=== PATIENT | female | born 1950 | race Caucasian/White ===

== ENCOUNTER 2023-05-08 13:50 | Outpatient (AMB) | payer MEDICARE, OTHER, SELFPAY ==
--- NOTE | 2023-05-08 14:02 | A.OFFVISCO_ITS ---
Intake Intake Visit Reasons: Depression Coding
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
--- NOTE | 2023-05-08 14:02 | MHC.PSYOV ---
Intake Intake Visit Reasons: Depression Coding
== END 2023-05-08 15:58 | disposition home or self-care (01) ==
LOC: HO.HOP 13:50
PROVIDERS: PCP Family Medicine; Visit Provider Clinical Nurse Specialist Psychiatric/Mental Health
DX: F33.9 Major depressive disorder, recurrent, unspecified (principal); F41.1 Generalized anxiety disorder
CPT/HCPCS: 99215

== ENCOUNTER → 2023-05-08 13:50 | Outpatient (BNVA) | payer MEDICARE, OTHER, SELFPAY | PROVIDERS: PCP Family Medicine; Visit Provider Clinical Nurse Specialist Psychiatric/Mental Health | DX: F33.9 Major depressive disorder, recurrent, unspecified (principal); F41.1 Generalized anxiety disorder | CPT/HCPCS: 99212 ==

== ENCOUNTER 2023-06-07 15:26 | Outpatient (AMB) | payer MEDICARE, OTHER, SELFPAY ==
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
== END 2023-06-07 15:59 | disposition home or self-care (01) ==
LOC: HO.HOP 15:26
PROVIDERS: PCP Family Medicine; Visit Provider Clinical Nurse Specialist Psychiatric/Mental Health
DX: F33.1 Major depressive disorder, recurrent, moderate (principal); F41.1 Generalized anxiety disorder
CPT/HCPCS: 99214

== ENCOUNTER → 2023-06-07 15:26 | Outpatient (BNVA) | payer MEDICARE, OTHER, SELFPAY | PROVIDERS: PCP Family Medicine; Visit Provider Clinical Nurse Specialist Psychiatric/Mental Health | DX: F33.1 Major depressive disorder, recurrent, moderate (principal); F41.1 Generalized anxiety disorder | CPT/HCPCS: 99212 ==

== ENCOUNTER 2023-07-31 13:14 | Outpatient (AMB) | payer MEDICARE, OTHER, SELFPAY ==
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
== END 2023-07-31 17:33 | disposition home or self-care (01) ==
LOC: HO.HOP 13:14
PROVIDERS: PCP Family Medicine; Visit Provider Clinical Nurse Specialist Psychiatric/Mental Health
DX: F33.1 Major depressive disorder, recurrent, moderate (principal); F41.1 Generalized anxiety disorder
CPT/HCPCS: 99214

== ENCOUNTER → 2023-07-31 13:14 | Outpatient (BNVA) | payer MEDICARE, OTHER, SELFPAY | PROVIDERS: PCP Family Medicine; Visit Provider Clinical Nurse Specialist Psychiatric/Mental Health | DX: F33.1 Major depressive disorder, recurrent, moderate (principal); F41.1 Generalized anxiety disorder | CPT/HCPCS: 99212 ==

== ENCOUNTER 2023-08-30 14:47 | Outpatient (AMB) | payer MEDICARE, OTHER, SELFPAY ==
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
== END 2023-08-30 15:23 | disposition home or self-care (01) ==
LOC: HO.HOP 14:47
PROVIDERS: PCP Family Medicine; Visit Provider Clinical Nurse Specialist Psychiatric/Mental Health
DX: F33.1 Major depressive disorder, recurrent, moderate (principal); F41.1 Generalized anxiety disorder
CPT/HCPCS: 99214

== ENCOUNTER → 2023-08-30 14:47 | Outpatient (BNVA) | payer MEDICARE, OTHER, SELFPAY | PROVIDERS: PCP Family Medicine; Visit Provider Clinical Nurse Specialist Psychiatric/Mental Health | DX: F33.1 Major depressive disorder, recurrent, moderate (principal); F41.1 Generalized anxiety disorder | CPT/HCPCS: 99212 ==

== ENCOUNTER 2023-09-25 11:36 | Outpatient (AMB) | payer MEDICARE, OTHER, SELFPAY ==
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
== END 2023-09-25 12:06 | disposition home or self-care (01) ==
LOC: HO.HOP 11:37
PROVIDERS: PCP Family Medicine; Visit Provider Clinical Nurse Specialist Psychiatric/Mental Health
DX: F33.1 Major depressive disorder, recurrent, moderate (principal); F41.1 Generalized anxiety disorder
CPT/HCPCS: 99214

== ENCOUNTER → 2023-09-25 11:36 | Outpatient (BNVA) | payer MEDICARE, OTHER, SELFPAY | PROVIDERS: PCP Family Medicine; Visit Provider Clinical Nurse Specialist Psychiatric/Mental Health | DX: F33.1 Major depressive disorder, recurrent, moderate (principal); F41.1 Generalized anxiety disorder | CPT/HCPCS: 99212 ==

== ENCOUNTER 2023-11-01 10:54 | Outpatient (AMB) | payer MEDICARE, OTHER, SELFPAY ==
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
== END 2023-11-01 11:31 | disposition home or self-care (01) ==
LOC: HO.HOP 10:54
PROVIDERS: PCP Family Medicine; Visit Provider Clinical Nurse Specialist Psychiatric/Mental Health
DX: F33.1 Major depressive disorder, recurrent, moderate (principal); F41.1 Generalized anxiety disorder
CPT/HCPCS: 99214

== ENCOUNTER → 2023-11-01 10:54 | Outpatient (BNVA) | payer MEDICARE, OTHER, SELFPAY | PROVIDERS: PCP Family Medicine; Visit Provider Clinical Nurse Specialist Psychiatric/Mental Health | DX: F33.1 Major depressive disorder, recurrent, moderate (principal); F41.1 Generalized anxiety disorder | CPT/HCPCS: 99212 ==

== ENCOUNTER 2024-01-05 11:08 | Outpatient (AMB) | payer MEDICARE, OTHER, SELFPAY ==
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
== END 2024-01-05 11:54 | disposition home or self-care (01) ==
LOC: HO.HOP 11:08
PROVIDERS: PCP Family Medicine; Visit Provider Clinical Nurse Specialist Psychiatric/Mental Health
DX: F33.1 Major depressive disorder, recurrent, moderate (principal); F41.1 Generalized anxiety disorder
CPT/HCPCS: 99214

== ENCOUNTER → 2024-01-05 11:08 | Outpatient (BNVA) | payer MEDICARE, OTHER, SELFPAY | PROVIDERS: PCP Family Medicine; Visit Provider Clinical Nurse Specialist Psychiatric/Mental Health | DX: F33.1 Major depressive disorder, recurrent, moderate (principal); F41.1 Generalized anxiety disorder; I10 Essential (primary) hypertension | CPT/HCPCS: 99212 ==

== ENCOUNTER 2024-02-02 11:20 | Outpatient (AMB) | payer MEDICARE, OTHER, SELFPAY ==
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
== END 2024-02-02 12:06 | disposition home or self-care (01) ==
LOC: HO.HOP 11:20
PROVIDERS: PCP Family Medicine; Visit Provider Clinical Nurse Specialist Psychiatric/Mental Health
DX: F33.1 Major depressive disorder, recurrent, moderate (principal); F41.1 Generalized anxiety disorder
CPT/HCPCS: 99214

== ENCOUNTER → 2024-02-02 11:20 | Outpatient (BNVA) | payer MEDICARE, OTHER, SELFPAY | PROVIDERS: PCP Family Medicine; Visit Provider Clinical Nurse Specialist Psychiatric/Mental Health | DX: F33.1 Major depressive disorder, recurrent, moderate (principal); F41.1 Generalized anxiety disorder | CPT/HCPCS: 99212 ==

== ENCOUNTER 2024-03-29 11:06 | Outpatient (AMB) | payer MEDICARE, OTHER, SELFPAY ==
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
== END 2024-03-29 11:52 | disposition home or self-care (01) ==
LOC: HO.HOP 11:06
PROVIDERS: PCP Family Medicine; Visit Provider Clinical Nurse Specialist Psychiatric/Mental Health
DX: F33.1 Major depressive disorder, recurrent, moderate (principal); F41.1 Generalized anxiety disorder; F51.5 Nightmare disorder
CPT/HCPCS: 99214

== ENCOUNTER → 2024-03-29 11:06 | Outpatient (BNVA) | payer MEDICARE, OTHER, SELFPAY | PROVIDERS: PCP Family Medicine; Visit Provider Clinical Nurse Specialist Psychiatric/Mental Health | DX: F33.1 Major depressive disorder, recurrent, moderate (principal); F41.1 Generalized anxiety disorder; F51.5 Nightmare disorder | CPT/HCPCS: 99212 ==

== ENCOUNTER 2024-05-17 12:59 | Outpatient (AMB) | payer MEDICARE, OTHER, SELFPAY ==
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
== END 2024-05-17 13:46 | disposition home or self-care (01) ==
LOC: HO.HOP 12:59
PROVIDERS: PCP Family Medicine; Visit Provider Clinical Nurse Specialist Psychiatric/Mental Health
DX: F33.1 Major depressive disorder, recurrent, moderate (principal); F41.1 Generalized anxiety disorder
CPT/HCPCS: 99214

== ENCOUNTER → 2024-05-17 12:59 | Outpatient (BNVA) | payer MEDICARE, OTHER, SELFPAY | PROVIDERS: PCP Family Medicine; Visit Provider Clinical Nurse Specialist Psychiatric/Mental Health | DX: F33.1 Major depressive disorder, recurrent, moderate (principal); F41.1 Generalized anxiety disorder | CPT/HCPCS: 99212 ==

== ENCOUNTER 2024-08-26 10:02 | Outpatient (AMB) | payer MEDICARE, OTHER, SELFPAY ==
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
== END 2024-08-26 15:15 | disposition home or self-care (01) ==
LOC: HO.HOP 10:02
PROVIDERS: PCP Family Medicine; Visit Provider Clinical Nurse Specialist Psychiatric/Mental Health
DX: F51.5 Nightmare disorder (principal); F33.1 Major depressive disorder, recurrent, moderate; F41.1 Generalized anxiety disorder
CPT/HCPCS: 99214

== ENCOUNTER → 2024-08-26 10:02 | Outpatient (BNVA) | payer MEDICARE, OTHER, SELFPAY | PROVIDERS: PCP Family Medicine; Visit Provider Clinical Nurse Specialist Psychiatric/Mental Health | DX: F51.5 Nightmare disorder (principal); F33.1 Major depressive disorder, recurrent, moderate; F41.1 Generalized anxiety disorder | CPT/HCPCS: 99212 ==

== ENCOUNTER 2024-10-24 10:37 | Outpatient (AMB) | payer MEDICARE, OTHER, SELFPAY ==
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
--- OUTSIDE RECORDS SUMMARY | 2024-10-24 11:43 | XMS_ITS | Encounter Summary ---
Author Organization Formerly [facility] Address [address] [place] [phone] Phone Care Team Providers Care Runner On Name Role Phone Susan Howard MD Primary Care Provider + [phone] Susan Howard MD Primary Care Provider + [phone] Reason for Referral * MRI/CAT Scan - Closed Specialty Diagnoses / Procedures Referred By Forest miramontes Referred To Contact Radiology Diagnoses Other form of dyspnea Procedures NC Myocardial Perfusion Pharmacologic Stress Multiple Susan Howard MD Phone: tel: fax: mailto:[email or web address] Referral ID Status Reason Start Date Expiration Date Visits Re quested Visits Authorized [id number] Closed 12/30/2021 12/30/2022 4 4 * Outpatient Procedure - Closed Specialty Diagnoses / Procedures Referred By Forest miramontes Referred To Contact Diagnoses Other form of dyspnea Procedures Adult Echo TTE Susan Howard MD Phone: tel: fax: mailto:[email or web address] Referral ID Status Reason Start Date Expiration Date Visits Re quested Visits Authorized [id number] Closed 12/30/2021 12/30/2022 1 1 Encounter Details Date Type Department Care Team (Latest Contact Info) Description 12/30/2021 Transcribe Orders Virtual Department [address] [place] [address] Susan Howard MD [address] [place] [phone] [email or web address] Other form of dyspnea Social History Tobacco Use Types Packs/Day Years Used Date Smoking Tobacco: Never Smokeless Tobacco: Never Alcohol Use Standard Drinks/Week Comments Yes 0 (1 standard drink = 0.6 oz pur e alcohol) Comments No Sex and Gender Information Value Date Recorded Sex Assigned at Not on file Legal Sex Female 9:59 PM EDT Gender Identity Not on file Sexual Orientation Not on file documented as of this encounter Plan of Treatment Not on file documented as of this encounter Results * NC Myocardial Perfusion Pharmacologic Stress Multiple (01/04/2022 9:46 AM EDT) Anatomical Region Laterality Modality Heart, Vascular Nuclear Medicine 01/04/2022 12:4 2 PM EDT Impressions 01/04/2022 12:50 PM EDT Scintigraphic findings consistent with mild anterior wall ischemia. The elevated TID ratio might imply additional subendocardial ischemia which could be correlated with clinical and EKG findings. The LVEF is within normal limits at approximately 86%. POS [id number] Narrative 01/04/2022 12:50 PM EDT COMPARISON: None DOSE: 9.4 mCi of technetium 99m sestamibi intravenously at rest and 27.7 mCi of technetium 99m sestamibi during pharmacologic stress. SPECT images were obtained, gated at stress. FINDINGS: Left ventricular cavity size is felt to be within normal limits. On the stress portion of the examination there is mildly diminished tracer uptake in the mid and apical origins of the anterior wall, apparently normalizing at rest. Tracer distribution throughout the remainder the left ventricular myocardium is essentially physiologic and unchanged between stress and rest without additional fixed or reversible perfusion defects noted. No focal abnormality of myocardial thickening demonstrated. The LVEF was calculated at approximately 86%. The TID ratio was mildly elevated at 1.29. Procedure Note Jose Nicole MD - 01/04/2022 COMPARISON: None DOSE: 9.4 mCi of technetium 99m sestamibi intravenously at rest and 27.7mCi of technetium 99m sestamibi during pharmacologic stress. SPECT imageswere obtained, gated at stress. FINDINGS: Left ventricular cavity size is felt to be within normal limits. On thestress portion of the examination there is mildly diminished tracer uptakein the mid and apical origins of the anterior wall, apparently normalizingat rest. Tracer distribution throughout the remainder the left ventricularmyocardium is essentially physiologic and unchanged between stress andrest without additional fixed or reversible perfusion defects noted. Nofocal abnormality of myocardial thickening demonstrated. The LVEF wascalculated at approximately 86%. The TID ratio was mildly elevated at1.29. IMPRESSION: Scintigraphic findings consistent with mild anterior wall ischemia. Theelevated TID ratio might imply additional subendocardial ischemia whichcould be correlated with clinical and EKG findings. The LVEF is withinnormal limits at approximately 86%. POS [id number] us Susan Howard MD CV NM CARDIAC Final Result * TTE COMPREHENSIVE (01/04/2022 8:01 AM EDT) Body Surface Area 1.71 m2 Height 160 cm Weight 68 kg Systolic BP 104 mmHg Diastolic BP 60 mmHg Left Atrium Dimension Anterior-Posterior 41 15 - 40 mm Aortic Valve Mean Gradient 5 mmHg Aortic Valve Time Velocity Integral 363 mm Aortic Valve Peak Velocity 157.0 cm/s Aortic Valve Peak Gradient 10 mmHg Aortic Sinus Diameter 25 mm Ascending Aorta Diameter 30 mm Interventricular Septum Thickness 8 mm Left Ventricle Internal Diameter End Diastole 42 37 - 52 mm Left Ventricle Internal Diameter End Systole 26 22 - 35 mm Left Ventricular Outflow Tract Diameter 17.0 mm LVOT VTI REST 283 mm Left Ventricular Outflow Tract Velocity 1.3 m/s Left Ventricular Outflow Tract Gradient at Rest 7 mmHg Left Ventricular Posterior Wall Thickness 8 mm Ejection Fraction 65 50 - 75 Percent Inferior Vena Cava Diameter 21 0.0 - 21 mm Mitral Valve A Wave Speed 83.9 cm/s Mitral Valve E Wave Speed 116.0 cm/s Right Ventricle Basal Diameter 39.8 25 - 41 mm Tricuspid Valve Peak Velocity 2.7 m/s Raw LV EF% 62 % Left Atrial Volume 53 mL Left Atrial Volume Index 30.99 mL/m2 Right Ventricle Peak Systolic Pressure 32 mmHg Right Ventricle TAPSE 2.9 mm Right Atrium Pressure Estimated 3 mmHg Right Ventricle to Right Atrium Pressure Gradient 29 mmHg Right Ventricle Pulse Doppler S Wave 13.6 cm/s Aortic Valve Sinus Index 1 15 19 - 27 mm Ascending Aorta Diameter 18 mm Aortic Sinus Index 15 mm Ascending Aorta Index 18 mm Anatomical Region Laterality Modality Heart Ultrasound Narrative 01/04/2022 1:04 PM EDT Normal LV size and wall thickness. LV systolic function is normal with EF 65 to 70%. There are no regional wall motion abnormalities. Normal diastolic function. Normal RV size and function. Mitral valve appears normal in structure. There is mild mitral regurgitation with a centrally directed jet. The tricuspid valve is not well visualized. There is mild tricuspid regurgitation. Estimated PASP is 30 to 35 mmHg, consistent with mild pulmonary hypertension. No prior study for comparison. Left Ventricle The left ventricular wall thickness is normal. Left ventricular systolic function is normal. There are no segmental left ventricular wall motion abnormalities noted. The estimated ejection fraction is 65% (Normal 50-75%). The left ventricular ejection fraction was measured by the single plane method of discs. Left ventricular diastolic function appears within normal limits for age. MV E/A 1.4 Med E' jodie 8.45cm/s Lat E' jodie 9.28cm/s E/E' avg 13.1 There is no evidence of left ventricular thrombus. Right Ventricle The right ventricular size is normal. The right ventricular systolic function is normal. There is no evidence of acute right ventricular strain. Left Atrium The left atrium is normal in size. The left atrial anterior-posterior dimension measures 41 mm (normal 15-40 mm). Right Atrium The right atrium is normal in size. The IVC is normal in size (2.1cm or less). The IVC measures 21 mm (normal <=21 mm). The IVC demonstrates normal collapse with inspiration which is consistent with normal RA pressure. Mitral Valve There is no evidence of mitral stenosis. There is no evidence of mitral valve prolapse. There is mild mitral regurgitation detected by spectral and color Doppler. Tricuspid Valve The tricuspid valve appears normal. There is no evidence of tricuspid stenosis. There is evidence of trace tricuspid regurgitation by color and spectral Doppler. The calculated peak RV-RA pressure gradient is 29 mmHg. Aortic Valve The aortic valve is tricuspid. There is no evidence of valvular aortic stenosis. The peak aortic valve gradient is 10 mmHg. The mean aortic gradient is 5 mmHg. There is no evidence of aortic regurgitation by color and spectral Doppler. The visualized portions of the thoracic aorta appear normal. Pulmonic Valve The pulmonary valve appears normal. There is no evidence of pulmonic stenosis. There is no evidence of pulmonary regurgitation by color and spectral Doppler. Pericardium There is no evidence of pericardial effusion. General Findings The image quality was fair (3). The predominant rhythm during the study was sinus. Comparison Findings No prior studies for comparison. Susan Howard MD CV ECHO ORDERABLES Final Res ult documented in this encounter Visit Diagnoses Diagnosis Other form of dyspnea Other form of dyspnea Other form of dyspnea documented in this encounter Care Teams Runner On Relationship Specialty Start Date End Date Susan Howard MD PCP - General 12/29/16 02/05/23 Susan Howard MD PCP - General Family Medicine 02/06/23 documented as of this encounter Additional Source Comments The information contained in this document represents components of the legal health record. It is not the complete legal health record.[facility]
== END 2024-10-24 11:16 | disposition home or self-care (01) ==
LOC: HO.HOP 10:37
PROVIDERS: PCP Family Medicine; Visit Provider Clinical Nurse Specialist Psychiatric/Mental Health
DX: F51.5 Nightmare disorder (principal); F33.1 Major depressive disorder, recurrent, moderate; F41.1 Generalized anxiety disorder
CPT/HCPCS: 99214

== ENCOUNTER → 2024-10-24 10:37 | Outpatient (BNVA) | payer MEDICARE, OTHER, SELFPAY | PROVIDERS: PCP Family Medicine; Visit Provider Clinical Nurse Specialist Psychiatric/Mental Health | DX: F33.1 Major depressive disorder, recurrent, moderate (principal); F51.5 Nightmare disorder; F41.1 Generalized anxiety disorder; Z79.899 Other long term (current) drug therapy | CPT/HCPCS: 99212 ==

== ENCOUNTER 2024-12-30 11:05 | Outpatient (AMB) | payer MEDICARE, OTHER, SELFPAY ==
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
--- OUTSIDE RECORDS SUMMARY | 2024-12-30 13:28 | XMS_ITS | Encounter Summary ---
Author Organization [facility] Address [address] [place] [phone] Phone Care Team Providers Care Software Development Specialist Name Role Phone Susan Howard MD Primary Care Provider + [phone] Susan Howard MD Primary Care Provider + [phone] Reason for Referral * MRI/CAT Scan - Closed Specialty Diagnoses / Procedures Referred By Forest miramontes Referred To Contact Radiology Diagnoses Other form of dyspnea Procedures NC Myocardial Perfusion Pharmacologic Stress Multiple Susan Howard MD Phone: tel: fax: mailto:[email or web address] Referral ID Status Reason Start Date Expiration Date Visits Re quested Visits Authorized [id number] Closed 12/30/2021 12/30/2022 4 4 * Outpatient Procedure - Closed Specialty Diagnoses / Procedures Referred By Forest miramontes Referred To Contact Diagnoses Other form of dyspnea Procedures Adult Echo TTE Susan Howard MD Phone: tel: fax: mailto:[email or web address] Referral ID Status Reason Start Date Expiration Date Visits Re quested Visits Authorized [id number] Closed 12/30/2021 12/30/2022 1 1 Encounter Details Date Type Department Care Team (Latest Contact Info) Description 12/30/2021 Transcribe Orders Virtual Department [address] [place] [phone] Susan Howard MD [address] [place] [address] [email or web address] Other form of dyspnea Social History [...] as of this encounter Plan of Treatment Upcoming Encounters Date Type Department Care Team (Late st Contact Info) Description 01/27/2025 Procedure Pass [facility] Endoscopy Admitting Dept Virtual Department [address] [place] [phone] 01/27/2025 1:30 PM EST Hospital Encounter [facility] Endoscopy Admitting Dept Virtual Department [address] [place] [phone] Jose Hensley MD [address] [place] [phone] [email or web address] 01/27/2025 1:30 PM EST - 01/27/2025 2:00 PM EST Surgery [facility] Endoscopy Admitting Dept Virtual Department [address] [place] [phone] Jose Hensley MD [address] [place] [phone] [email or web address] COLONOSCOPY Scheduled Procedures Name Priority Associated Diagnoses Date/Ti il COLONOSCOPY Special screening for malignant neoplasms, colon 01/27/2025 1:30 PM EST documented as of this encounter Results * [...] within normal limits at approximately 86%. POS [id number] Narrative 01/04/2022 12:50 PM EDT COMPARISON: None [...] is withinnormal limits at approximately 86%. POS [id number] us Susan Howard MD CV NM CARDIAC [...] Comparison Findings No prior studies for comparison. us Susan Howard MD CV ECHO ORDERABLES Final Res ult documented in this encounter Visit Diagnoses Diagnosis Other form of dyspnea Other form of dyspnea Other form of dyspnea Special screening for malignant neoplasms, colon documented in this encounter Care Teams Software Development Specialist Relationship Specialty Start Date End Date Susan Howard MD [email or web address] PCP - General 12/29/16 02/05/23 Susan Howard MD [email or web address] PCP - General Family Medicine 02/06/23 documented as of this encounter Additional Source Comments The information contained in this document represents components of the legal health record. It is not the complete legal health record.[facility]
--- OUTSIDE RECORDS SUMMARY | 2024-12-30 13:28 | XMS_ITS | Encounter Summary ---
Author Organization [facility] Address [address] [place] [phone] Phone Care Team Providers Care Facing Baster Name Role Phone Susan Howard MD Primary Care Provider + [phone] Susan Howard MD Primary Care Provider + [phone] Encounter Details Date Type Department Care Team (Late Contact Info) Description 12/30/2021 Procedure Pass [facility] Echo [facility] [address] [place] [address] Social History Tobacco Use Types Packs/Day Years [...] Encounters Date Type Department Care Team (Late Contact Info) Description 01/27/2025 Procedure Pass [facility] Endoscopy Admitting Dept Virtual Department [address] [place] [address] 01/27/2025 1:30 PM EST Hospital Encounter [facility] Endoscopy Admitting Dept Virtual Department [address] [place] [address] Jose Hensley MD [address] [place] [phone] 01/27/2025 1:30 PM EST - 01/27/2025 2:00 PM EST Surgery [facility] Endoscopy Admitting Dept Virtual Department [address] [place] [address] Jose Hensley MD [address] [phone] [email or web address] COLONOSCOPY Scheduled Procedures Name Priority Associated Diagnoses Date/Ti me COLONOSCOPY Special screening for malignant neoplasms, colon 01/27/2025 1:30 PM EST documented as of this encounter Visit Diagnoses Not on filedocumented in this encounter Care Teams Facing Baster Relationship Specialty Start Date End Date Susan Howard MD PCP - General 12/29/16 02/05/23 Susan Howard MD PCP - General Family Medicine 02/06/23 documented as of this encounter Additional Source Comments The information contained in this document represents components of the legal health record. It is not the complete legal health record.[facility]
--- OUTSIDE RECORDS SUMMARY | 2024-12-30 13:29 | XMS_ITS | Encounter Summary ---
Author Organization Formerly [facility] Address [address] [place] [address] Phone Care Team Providers Care Shaping Machine Tender Name Role Phone Susan Howard MD Primary Care Provider + [phone] Susan Howard MD Primary Care Provider + [phone] Encounter Details Date Type Department Care Team (Late Contact Info) Description 01/07/2019 Ancillary Orders Virtual Department [address] [place] [address] Susan Howard MD [address] [place] [address] Breast screening Social History Tobacco Use Types Packs/Day Years Used Date Smoking Tobacco: Never Assessed Comments Unknown Sex and Gender Information Value Date Recorded Sex Assigned at Not on file Legal Sex Female 9:59 PM EDT Gender Identity Not on file Sexual Orientation Not on file documented as of this encounter Plan of Treatment Upcoming Encounters Date Type Department Care Team (Late Contact Info) Description 01/27/2025 Procedure Pass [facility] Endoscopy Admitting Dept Virtual Department [address] [place] [address] 01/27/2025 1:30 PM EST Hospital Encounter [facility] Endoscopy Admitting Dept Virtual Department [address] [place] [address] Jose Hensley MD [address] [place] [address] 01/27/2025 1:30 PM EST - 01/27/2025 2:00 PM EST Surgery [facility] Endoscopy Admitting Dept Virtual Department [address] [place] [address] Jose Hensley MD [address] [place] [address] [email or web address] COLONOSCOPY Scheduled Procedures Name Priority Associated Diagnoses Date/Ti me COLONOSCOPY Special screening for malignant neoplasms, colon 01/27/2025 1:30 PM EST documented as of this encounter Results * BI MAMMOGRAM SCREENING WITH TOMOSYNTHESIS WITH CAD (BILATERAL) (01/31/2019 12:04 PM EST) Anatomical Region Laterality Modality Breast Left, Breast Right, Breast Bilateral Bila teral Mammography 01/31/2019 2:35 PM EST Impressions 01/31/2019 2:41 PM EST No mammographic change indicative of malignancy. Routine screening is recommended. BI-RADS CATEGORY: 2 - Benign finding. DENSITY: There are scattered fibroglandular densities. POS -[id number] Narrative 01/31/2019 2:41 PM EST Bilateral full-field digital screening mammography is obtained and read in conjunction with computer-aided detection. Tomosynthesis as well as 2-D C view imaging of both breasts in two planes also obtained. Comparison made to multiple prior, most recent 01/27 2017, and most remote February 12, 2010. No dominant mass, architectural distortion, worrisome asymmetry, or suspicious calcification is identified. No skin or nipple finding of concern is appreciated. (Lobulated appearance to the subareolar breast tissue bilaterally is stable. Procedure Note Jose Melendez MD - 01/31/2019 Bilateral full-field digital screening mammography is obtained and read inconjunction with computer-aided detection. Tomosynthesis as well as 2-D Cview imaging of both breasts in two planes also obtained. Comparison madeto multiple prior, most recent 01/27 2017, and most remote February. No dominant mass, architectural distortion, worrisome asymmetry, orsuspicious calcification is identified. No skin or nipple finding ofconcern is appreciated. (Lobulated appearance to the subareolar breasttissue bilaterally is stable. IMPRESSION: No mammographic change indicative of malignancy. Routine screening isrecommended. BI-RADS CATEGORY: 2 - Benign finding. DENSITY: There are scattered fibroglandular densities. POS -[id number] Susan Howard MD IMG MG EXAMS Final Result documented in this encounter Visit Diagnoses Diagnosis Breast screening Breast screening, unspecified Breast screening Breast screening, unspecified Special screening for malignant neoplasms, colon documented in this encounter Care Teams Shaping Machine Tender Relationship Specialty Start Date End Date Susan Howard MD PCP - General 12/29/16 02/05/23 Susan Howard MD PCP - General Family Medicine 02/06/23 documented as of this encounter Additional Source Comments The information contained in this document represents components of the legal health record. It is not the complete legal health record.[facility]ly [facility]
--- OUTSIDE RECORDS SUMMARY | 2024-12-30 13:29 | XMS_ITS | Encounter Summary ---
Author Organization [facility] Address [address] [place] [address] Phone Care Team Providers Care School Age Teacher Name Role Phone Susan Howard MD Primary Care Provider + [phone] Susan Howard MD Primary Care Provider + [phone] Encounter Details Date Type Department Care Team (Late st Contact Info) Description 01/05/2021 Procedure Pass [address] [address] Social History Tobacco Use Types Packs/Day Years Used Date Smoking Tobacco: Never Assessed Comments No Sex and Gender Information Value Date Recorded Sex Assigned at Not on file Legal Sex Female 9:59 PM EDT Gender Identity Not on file Sexual Orientation Not on file documented as of this encounter Plan of Treatment Upcoming Encounters Date Type Department Care Team (Late st Contact Info) Description 01/27/2025 Procedure Pass [facility] Endoscopy Admitting Dept Virtual Department [address] [place] [address] 01/27/2025 1:30 PM EST Hospital Encounter [facility] Endoscopy Admitting Dept Virtual Department [address] [place] [address] Jose Hensley MD [address] [place] [address] 01/27/2025 1:30 PM EST - 01/27/2025 2:00 PM EST Surgery [facility] Endoscopy Admitting Dept Virtual Department [address] [place] [address] Jose Hensley MD [address] [place] [address] [email or web address] COLONOSCOPY Scheduled Procedures Name Priority Associated Diagnoses Date/Ti me COLONOSCOPY Special screening for malignant neoplasms, colon 01/27/2025 1:30 PM EST documented as of this encounter Visit Diagnoses Not on filedocumented in this encounter Care Teams School Age Teacher Relationship Specialty Start Date End Date Susan Howard MD PCP - General 12/29/16 02/05/23 Susan Howard MD PCP - General Family Medicine 02/06/23 documented as of this encounter Additional Source Comments The information contained in this document represents components of the legal health record. It is not the complete legal health record.[facility]
--- OUTSIDE RECORDS SUMMARY | 2024-12-30 13:29 | XMS_ITS | Encounter Summary ---
Author Organization [facility] Address [address] [place] [address] Phone Care Team Providers Care Mattress Packer Name Role Phone Susan Howard MD Primary Care Provider + [phone] Susan Howard MD Primary Care Provider + [phone] Reason for Referral * Physical Therapy (Routine) - Closed Specialty Diagnoses / Procedures Referred By [place] miramontes Referred To Contact Physical Therapy Diagnoses Encounter for rehabilitation Reinaldo De Paz MD Phone: tel: fax: [email or web address] [address] [address] Phone: tel: Referral ID Status Reason Start Date Expiration Date Visits Re quested Visits Authorized [id number] Closed 01/25/2017 01/25/2018 1 1 Encounter Details Date Type Department Care Team (Latest Contact Info) Description 01/25/2017 Transcribe Orders [facility] [address] [place] [address] Reinaldo De Paz MD [address] [place] [address] [email or web address] Encounter for rehabilitation (Primary Dx) Social History Tobacco Use Types Packs/Day Years [...] Pass [facility] Endoscopy Admitting Dept Virtual Department [address] [place] [address] 01/27/2025 1:30 PM EST Hospital Encounter [facility] Endoscopy Admitting Dept Virtual Department [address] [place] [address] Jose Hensley MD [address] [address] [email or web address] 01/27/2025 1:30 PM EST - 01/27/2025 2:00 PM EST Surgery [facility] Endoscopy Admitting Dept Virtual Department [address] [place] [address] Jose Hensley MD [address] [address] [email or web address] COLONOSCOPY Scheduled Procedures Name Priority Associated Diagnoses Date/Ti me COLONOSCOPY Special screening for malignant neoplasms, colon 01/27/2025 1:30 PM EST Scheduled Referrals Name Type Priority Associated Diagnoses Orde r Schedule Ambulatory referral to [facility] Physical Therapy Outpatient Referral Routine Encounter for rehabilitation Ordered: 01/25/2017 documented as of this encounter Visit Diagnoses Diagnosis Encounter for rehabilitation- Primary Special screening for malignant neoplasms, colon documented in this encounter Care Teams Mattress Packer Relationship Specialty Start Date End Date Susan Howard MD PCP - General 12/29/16 02/05/23 Susan Howard MD PCP - General Family Medicine 02/06/23 documented as of this encounter Additional Source Comments The information contained in this document represents components of the legal health record. It is not the complete legal health record.[facility]
--- OUTSIDE RECORDS SUMMARY | 2024-12-30 13:29 | XMS_ITS | Encounter Summary ---
Author Organization [facility] Address [address] [place] [address] Phone Care Team Providers Care Freight Trucker Name Role Phone Susan Howard MD Primary Care Provider + [phone] Susan Howard MD Primary Care Provider + [phone] Encounter Details Date Type Department Care Team (Latest Contact Info) Description 01/12/2022 Transcribe Orders [facility] [address] [facility] [address] [place] [address] Kirsten Smith CNP [address] [place] [address] [email or web address] Diarrhea, unspecified type (Primary Dx) Social History Tobacco Use Types [...] [facility] Endoscopy Admitting Dept Virtual Department [address] [place] [address] 01/27/2025 1:30 PM EST Hospital Encounter [facility] Endoscopy Admitting Dept Virtual Department [address] [place] [address] Jose Hensley MD [address] [place] [address] 01/27/2025 1:30 PM EST - 01/27/2025 2:00 PM EST Surgery [facility] Endoscopy Admitting Dept Virtual Department [address] [place] [address] Jose Hensley MD [address] [address] [email or web address] COLONOSCOPY Scheduled Procedures Name Priority Associated Diagnoses Date/Ti wv COLONOSCOPY Special screening for malignant neoplasms, colon 01/27/2025 1:30 PM EST documented as of this encounter Results * (ABNORMAL) Ova and parasites, stool (01/17/2022 9:40 AM EST) Parasitic exam (SEE NOTE)(A) [facility] DPT OF LAB MED AND PAT+ Comment: (NOTE) SOURCE: STOOL OVA AND PARASITE, MICROSCOPY, F FINAL BLASTOCYSTIS HOMINIS Detected, few Cryptosporidium, Cyclospora, and microsporidia are not readily detected by this method. Stool (Stool) 01/17/2022 9:4 0 AM EST 01/17/2022 3:46 PM EST us Kirsten Smith [facility] MICROBIOLOGY - GENERAL ORD ERABLES Final Result [facility] DPT OF LAB MED AND PAT+ [address] [place] [address] * (ABNORMAL) Ova and parasites, stool (01/17/2022 9:40 AM EST) Parasitic exam (SEE NOTE)(A) [facility] DPT OF LAB MED AND PAT+ Comment: (NOTE) SOURCE: STOOL OVA AND PARASITE, MICROSCOPY, F FINAL BLASTOCYSTIS HOMINIS Detected, moderate Cryptosporidium, Cyclospora, and microsporidia are not readily detected by this method. Stool (Stool) 01/17/2022 9:4 0 AM EST 01/17/2022 3:49 PM EST Kirsten Smith [facility] MICROBIOLOGY - GENERAL ORD ERABLES Final Result Performing Organization Address City/[facility] Co de Phone Number [facility] DPT OF LAB MED AND PAT+ [address] [place] [address] * Giardia antigen screen (01/17/2022 9:40 AM EST) ST GIARDIA ANTIGEN Negative Negative [facility] DPT OF LAB MED AND PAT+ Comment: (NOTE) ADDITIONAL INFORMATION Test Performed by Enzyme Immunoassay. Stool (Stool) 01/17/2022 9:4 0 AM EST 01/17/2022 3:51 PM EST Kirsten Smith [facility] MICROBIOLOGY - GENERAL ORD ERABLES Final Result Performing Organization Address [facility] de Phone Number [facility] DPT OF LAB MED AND PAT+ [address] [place] [address] * Cryptosporidium antigen, stool (Kenton sendout) (01/17/2022 9:40 AM EST) Pathologist [facility] CRYPTOSPORIDIUM AG, STOOL Negative Negative [facility] DPT OF LAB MED AND PAT+ Comment: (NOTE) ADDITIONAL INFORMATION Test Performed by Enzyme Immunoassay. Stool (Stool) 01/17/2022 9:4 0 AM EST 01/17/2022 3:51 PM EST Kirsten Smith [facility] MICROBIOLOGY - GENERAL ORD ERABLES Final Result Performing Organization Address City/[facility] Co de Phone Number [facility] DPT OF LAB MED AND PAT+ [address] [place] [address] * Stool culture (01/17/2022 9:40 AM EST) Special Requests None 01/17/2022 3:38 PM EST [facility] Stool Culture NO SALMONELLA, SHIGELLA OR CAMPYLOBACTER ISOLATED 01/20/2022 7:58 AM EST [facility] Stool (Stool) 01/17/2022 9:4 0 AM EST 01/17/2022 3:52 PM EST Kirsten Smith [facility] MICROBIOLOGY - GENERAL ORD ERABLES Final Result Performing Organization Address [facility] Co de Phone Number [facility] [address] [place] [address] * Calprotectin, stool (01/17/2022 9:40 AM EST) STOOL CALPROTECTIN <5 mcg/g [facility] Comment: (NOTE) Reference Range: <50 Normal 50-120 Borderline >120 Elevated Calprotectin in Crohn's disease and ulcerative colitis can be five to several thousand times above the reference population (50 mcg/g or less). Levels are usually 50 mcg/g or less in healthy patients and with irritable bowel syndrome. Repeat testing in 4-6 weeks is suggested for borderline values. Stool (Stool) 01/17/2022 9:4 0 AM EST 01/17/2022 3:49 PM EST Kirsten Smith [facility] BODY FLUIDS AND STOOLS ORD ERABLES Final Result Performing Organization Address [facility] Co de Phone Number [facility] [address] [place] [address], [facility] [phone] * (ABNORMAL) Ova and parasites, stool (01/15/2022 10:00 AM EDT) Parasitic exam (SEE NOTE)(A) [facility] DPT OF LAB MED AND PAT+ Comment: (NOTE) SOURCE: STOOL OVA AND PARASITE, MICROSCOPY, F FINAL BLASTOCYSTIS HOMINIS Detected, moderate Cryptosporidium, Cyclospora, and microsporidia are not readily detected by this method. Stool (Stool) 01/15/2022 10: 00 AM EDT 01/17/2022 3:44 PM EST Kirstenjacoby Reed Luis [facility] MICROBIOLOGY - GENERAL ORD ERABLES Final Result [facility] DPT OF LAB MED AND PAT+ [address] [place] [address] * HELICOBACTER PYLORI WITH CLARITHROMYCIN RESISTANCE PREDS (01/14/2022 10:00 AM EDT) Specimen Source STOOL [facility] DPT OF LAB MED AND PAT+ Helicobacter pylori Result Not Detected Not Detected [facility] DPT OF LAB MED AND PAT+ Comment: (NOTE) ADDITIONAL INFORMATION This test was developed and its performance characteristics determined by [facility] in a manner consistent with CLIA requirements. This test has not been cleared or approved by the U.S. Food and Drug Administration. Clarithromycin Resistance Result Test component not applicable or not reported. [facility] DPT OF LAB MED AND PAT+ Blood 01/14/2022 10:0 0 AM EDT 01/17/2022 3:48 PM EST Kirsten Smith CNP BODY FLUIDS AND STOOLS ORD ERABLES Final Result Performing Organization Address [facility] Co de Phone Number [facility] DPT OF LAB MED AND PAT+ [address] [place] [address] * C-Reactive Protein (01/12/2022 1:40 PM EDT) Pathologist [facility] C REACTIVE PROTEIN <3.0 0.0 - 4.0 mg/L [facility] Blood 01/12/2022 1:40 PM EDT 01/12/2022 1:52 PM EDT Kirsten Briannamatilde Smith CNP LAB BLOOD ORDERABLES Final Result Performing Organization Address City/[facility]/ZIP Co de Phone Number [facility] [address] [place] [address] * (ABNORMAL) Comprehensive metabolic panel (01/12/2022 1:40 PM EDT) SODIUM 130(L) 133 - 146 mmol/L [facility] POTASSIUM 4.6 3.3 - 5.1 mmol/L [facility] CHLORIDE 93(L) 96 - 108 mmol/L [facility] CO2 27 21 - 35 mmol/L [facility] BUN 19 6 - 19 mg/dL [facility] CREATININE 0.90 0.5 - 1.5 mg/dL [facility] GLUCOSE 102(H) 70 - 99 mg/dL [facility] ALBUMIN 4.6 3.9 - 4.8 g/dL [facility] TOTAL PROTEIN 7.8 6.5 - 8.0 g/dL [facility] CALCIUM 9.5 8.4 - 10.3 mg/dL [facility] ALKALINE PHOSPHATASE 95 39 - 117 U/L [facility] TOTAL BILIRUBIN 0.5 0.0 - 1.2 mg/dL [facility] AST 28 0 - 37 U/L [facility] ALT 18 0 - 40 U/L [facility] GLOBULIN 3.2 1 - 4.8 g/dL [facility] EGFR 69 >59 mL/min/1.7 3m2 [facility] Comment:Estimated glomerular filtration rate calculated using the CKD-EPI refit equation. ANION GAP 15 10 - 20 mmol/L [facility] Blood 01/12/2022 1:40 PM EDT 01/12/2022 1:52 PM EDT us Kirsten Smith [facility] LAB BLOOD ORDERABLES Final Result [facility] [address] [place] [address] * CBC and differential (01/12/2022 1:40 PM EDT) WBC 6.90 4.00 - 11.00 K/uL [facility] RBC 4.38 3.72 - 5.30 M/uL [facility] HGB 13.0 11.4 - 15.9 g/dL [facility] HCT 37.6 34.2 - 46.8 % [facility] PLT 353 140 - 430 K/uL [facility] MCV 85.8 78.0 - 97.0 fL [facility] MCH 29.7 25.0 - 33.0 pg [facility] MCHC 34.6 32.0 - 36.0 g/dL [facility] RDW 12.4 11.0 - 16.0 % [facility] MPV 10.0 8.4 - 12.8 [facility] DIFF METHOD Auto [facility] NEUTS 60.8 43.0 - 75.0 % [facility] LYMPHS 24.8 18.2 - 47.4 % [facility] MONOS 7.4 4.00 - 11.00 % [facility] EOS 6.2 0.0 - 8.0 % [facility] BASOS 0.7 0.0 - 2.0 % [facility] Granulocytes, immature (%) 0.1 0.0 - 0.9 % [facility] ABSOLUTE NEUTS 4.19 1.80 - 7.70 K/uL [facility] ABSOLUTE LYMPHS 1.71 1.00 - 3.10 K/uL [facility] ABSOLUTE MONOS 0.51 0.20 - 0.80 K/uL [facility] ABSOLUTE EOS 0.43 0.00 - 0.80 K/uL [facility] ABSOLUTE BASOS 0.05 0.00 - 0.09 K/uL [facility] Granulocytes, immature 0.01 0.00 - 0.05 K/uL [facility] Blood 01/12/2022 1:40 PM EDT 01/12/2022 1:52 PM EDT us Kirsten Smith [facility] LAB BLOOD ORDERABLES Final Result [facility] [address] [place] [address] * Immunoglobulin A (01/12/2022 1:40 PM EDT) IgA 252 70 - 400 mg/dL [facility] Blood 01/12/2022 1:40 PM EDT 01/12/2022 1:52 PM EDT us Kirsten Smith [employer] [facility] LAB BLOOD ORDERABLES Final Result [facility] [address] [place] [address] * Tissue transglutaminase IgA (01/12/2022 1:40 PM EDT) TTG IGA ANTIBODY <1.2 <4.0 (Negative) U/mL [facility] MED[facility] Blood 01/12/2022 1:40 PM EDT 01/12/2022 1:51 PM EDT Kirsten Smith [facility] LAB BLOOD ORDERABLES Final Result [facility] [address] [place] [address] documented in this encounter Visit Diagnoses Diagnosis Diarrhea, unspecified type- Primary Special screening for malignant neoplasms, colon documented in this encounter Care Teams Freight Trucker Relationship Specialty Start Date End Date Susan Howard MD PCP - General 12/29/16 02/05/23 Susan Howard MD PCP - General Family Medicine 02/06/23 documented as of this encounter Additional Source Comments The information contained in this document represents components of the legal health record. It is not the complete legal health record.[facility]
--- OUTSIDE RECORDS SUMMARY | 2024-12-30 13:29 | XMS_ITS | Encounter Summary ---
Author Organization [facility] Address [address] [place] [address] [place] [address] Phone Care Team Providers Care Chamber Magistrate Name Role Phone Susan Howard MD Primary Care Provider + [phone] Encounter Details Date Type Department Care Team (Late st Contact Info) Description 02/06/2023 Ancillary Orders [facility], X-Ray - [address] [address] Helen Carbajal, PLATE MOLDER [address] [place] [address] [phone] [email or web address] Lumbar spondylosis Social History Tobacco Use Types Packs/Day Years Used Date Smoking Tobacco: Never Smokeless Tobacco: Never Alcohol Use Standard Drinks/Week Comments Yes 0 (1 standard drink = 0.6 oz pur e alcohol) Education Answer Date Recorded Are you interested in more education? Not on dany e 07/08/2022 Are you concerned about learning? Not on file 07/08/2022 No 07/08/2022 No 07/08/2022 Digital Access Answer Date Recorded No 08/06/2022 No 08/06/2022 Reliable internet access at home? Not on file 08/06/2022 Device with a working camera? Not on file Intimate Partner Violence Answer Date R ecorded Are you denied basic needs s uch as food, clothing, or medical care? No 03/19/2022 In the past 12 months have y ou been in a relationship with a person who hurts, threatens, or tries to control you? No 03/19/2022 Are you denied basic needs s uch as food, clothing, or medical care? No 03/19/2022 In the past 12 months have y ou been in a relationship with a person who hurts, threatens, or tries to control you? No 03/19/2022 Comments No Sex and Gender Information Value Date Recorded Sex Assigned at Not on file Legal Sex Female 9:59 PM EDT Gender Identity Not on file Sexual Orientation Not on file documented as of this encounter Plan of Treatment Upcoming Encounters Date Type Department Care Team (Late st Contact Info) Description 01/27/2025 Procedure Pass [facility] Endoscopy Admitting Dept Virtual Department [address] [place] [address] 01/27/2025 1:30 PM EST Hospital Encounter [facility] Endoscopy Admitting Dept Virtual Department [address] [place] [phone] Jose Hensley MD [address] [place] [address] 01/27/2025 1:30 PM EST - 01/27/2025 2:00 PM EST Surgery [facility] Endoscopy Admitting Dept Virtual Department [address] [place] [address] Jose Hensley MD [address] [place] [address] [email or web address] COLONOSCOPY Scheduled Procedures Name Priority Associated Diagnoses Date/Ti sd COLONOSCOPY Special screening for malignant neoplasms, colon 01/27/2025 1:30 PM EST documented as of this encounter Results * XR LUMBOSACRAL SPINE 4 OR MORE VIEWS (02/06/2023 1:46 PM EST) Anatomical Region Laterality Modality L-spine Computed Radiogr aphy 02/08/2023 12:5 0 AM EST Impressions 02/08/2023 12:51 AM EST Moderate to severe lumbar spine degenerative change. Dextroconvex lumbar scoliosis. Narrative 02/08/2023 12:51 AM EST XR LUMBOSACRAL SPINE 4 OR MORE VIEWS Referring clinician's provided indication for this examination in Epic: Pain COMPARISON: None FINDINGS: ALIGNMENT: Dextroconvex lumbar scoliosis centered at L2. An millimeters L4-5 anterolisthesis. VERTEBRAE: Bones demineralized. Vertebral body heights preserved. DISCS: Disc height loss with endplate sclerosis and marginal osteophytes most pronounced at L4-5 and L5-S1. FACETS: Facet and uncovertebral arthropathy at all levels, most pronounced at L3-S1. PARASPINAL SOFT TISSUES: Constipation. Mild sacroiliac joint bony proliferative change. Sacrum obscured by bowel gas. Procedure Note Chris Schmitt MD - 02/08/2023 XR LUMBOSACRAL SPINE 4 OR MORE VIEWS Referring clinician's provided indication for this examination in Epic:Pain COMPARISON: None FINDINGS: ALIGNMENT: Dextroconvex lumbar scoliosis centered at L2. An millimetersL4-5 anterolisthesis. VERTEBRAE: Bones demineralized. Vertebral body heights preserved. DISCS: Disc height loss with endplate sclerosis and marginal osteophytesmost pronounced at L4-5 and L5-S1. FACETS: Facet and uncovertebral arthropathy at all levels, most pronouncedat L3- S1. PARASPINAL SOFT TISSUES: Constipation. Mild sacroiliac joint bonyproliferative change. Sacrum obscured by bowel gas. IMPRESSION: Moderate to severe lumbar spine degenerative change. Dextroconvex lumbar scoliosis. Helen Carbajal PLATE MOLDER IMG XR SPINE Final Result documented in this encounter Visit Diagnoses Diagnosis Lumbar spondylosis Lumbosacral spondylosis without myelopathy Lumbar spondylosis Lumbosacral spondylosis without myelopathy Special screening for malignant neoplasms, colon documented in this encounter Care Teams Chamber Magistrate Relationship Specialty Start Date End Date Susan Howard MD PCP - General Family Medicine 02/06/23 documented as of this encounter Additional Source Comments The information contained in this document represents components of the legal health record. It is not the complete legal health record.[facility]
--- OUTSIDE RECORDS SUMMARY | 2024-12-30 13:29 | XMS_ITS | Clinical Summary ---
Author Organization [facility] Address [address] [place] [address] Phone Care Team Providers Care Services Executive Name Role Phone Susan Howard MD Primary Care Provider [phone] Allergies Active Allergy Reactions Criticality Noted Date Comments Beta-Blockers (Beta-Adrenergic Blocking Agts) Shortness Of Breath High 01/25/2023 Patient had shortness of breath for long time she had multiple diagnostic tests but her beta-mary was stopped and her shortness of breath got better to chronotropic incompetence Lisinopril 11/24/2021 Neomycin 11/24/2021 Medications amLODIPine (NORVASC) 5 MG tablet Take 7.5 mg by mouth daily. 09/03/2020 Active cloNIDine HCL (CATAPRES) 0.1 MG tablet TAKE 1/2 A TABLET BY MOUTH EVERY DAY IN THE MORNING AND TAKE 1 TO 2 TABLETS IN THE EVENING 10/12/2020 Active traZODone (DESYREL) 100 MG tablet Take 25 mg by mouth nightly at bedtime. 11/10/2020 Active busPIRone (BUSPAR) 10 MG tablet Take 10 mg by mouth 3 (three) times a day. 11/22/2021 Active sertraline (ZOLOFT) 25 MG tablet 0.75 tablets daily. 03/11/2022 Active LORazepam (ATIVAN) 0.5 MG tablet TAKE 1/2 TO 1 TABLET BY MOUTH UP TO TWICE A DAY NEEDED FOR ANXIETY 05/25/2022 Active aspirin 81 mg chewable tablet Take 81 mg by mouth. Active melatonin 3 mg Tab Active methenamine (HIPREX) 1 gram tablet Take 1 tablet by mouth daily. 11/11/2022 Active mirtazapine (REMERON) 7.5 MG tablet Take 0.5 tablets by mouth nightly at bedtime. 10/18/2022 Active cranberry fruit 400 mg Tab Take 400 mg by mouth daily. Active ascorbic acid, vitamin C, (VITAMIN C) 250 mg Chew Take by mouth daily. Active cholecalciferol (VITAMIN D3) 4,000 unit tablet Take 1,000 Units by mouth daily. Active Active Problems Problem Noted Date Diagnosed Date Benign essential hypertension 01/25/2023 Dyspnea on exertion 06/01/2022 Assessment & Plan (06/01/2022 12:58 PM EDT): Patient's chief complaint is shortness of breath on strenuous exertion particularly walking up the hill walking on the stairs etc. We will do a ETT with O2 sat measurements during the ETT and see what happens. In the meantime I have asked her to slowly withdraw the beta-mary over 2 weeks. Which she will do I will also check a BNP make sure we are not missing heart failure Pulmonary hypertension 06/01/2022 Assessment & Plan (06/01/2022 12:59 PM EDT): Echocardiogram her pulmonary pressures are mildly elevated. If nothing helps then we might need a right heart catheterization to review her Riella right-sided pressures Chronotropic incompetence 06/01/2022 Assessment & Plan (06/01/2022 12:59 PM EDT): She gets shortness of breath only when she has to do some strenuous exercise and she told me that her heart rate does not go up since she was put on beta-mary. So we will gradually withdraw the beta-mary and see if that helps her. Family History Medical History Relation Comments Stroke Father Pancreatic cancer Mother Melanoma Sister Relation Status Comments Father Mother Sister Social History Tobacco Use Types Packs/Day Years Used Date Smoking Tobacco: Never Smokeless Tobacco: Never Tobacco Cessation:Counseling Given: Not Answered Alcohol Use Standard Drinks/Week Comments Yes 0 [...] on file Sexual Orientation Not on file Last Filed Vital Signs Vital Sign Reading Time Taken Comments Blood Pressure 158/92 01/29/2024 11:37 AM EST Pulse 66 01/29/2024 11:37 AM EST Temperature 36.7 C (98.1 F) 03/19/2022 11:20 AM EST Respiratory Rate 17 03/19/2022 1:59 PM EST Oxygen Saturation 98% 01/29/2024 11:37 AM EST Inhaled Oxygen Concentration - - Weight 80.3 kg (177 lb) 01/29/2024 11:37 AM EST Height 160 cm (5' 2.99 ) 01/29/2024 11:37 AM EST Body Mass Index 31.36 01/29/2024 11:37 AM EST Plan of Treatment Upcoming Encounters Date Type Department Care Team (Late st Contact Info) Description 01/27/2025 Procedure Pass [facility] Endoscopy Admitting Dept Virtual Department [address] [place] [phone] 01/27/2025 1:30 PM EST Hospital Encounter [facility] Endoscopy Admitting Dept Virtual Department [address] [place] [phone] Jose Hensley MD [address] [place] [address] [place] [address] 01/27/2025 1:30 PM EST - 01/27/2025 2:00 PM EST Surgery [facility] Endoscopy Admitting Dept Virtual Department [address] [place] [address] Jose Hensley MD [address] [address] [email or web address] COLONOSCOPY Scheduled Procedures Name Priority Associated Diagnoses Date/Ti me COLONOSCOPY Special screening for malignant neoplasms, colon 01/27/2025 1:30 PM EST Health Maintenance Due Date Last Done Comments LIPID PANEL 1952 DEPRESSION SCREENING 1964 HEPATITIS C SCREENING 1970 COLOGUARD 1997 COLONOSCOPY 1997 COLORECTAL CANCER SCREENING 1997 FIT TEST 1997 FOBT 1997 SIGMOIDOSCOPY 1997 VIRTUAL COLONOSCOPY 1997 ZOSTER VACCINES (1 of 2) 2002 OSTEOPOROSIS SCREENING INITIAL (ONE-TIME) 2017 BLOOD PRESSURE 07/28/2024 01/29/2024 INFLUENZA VACCINE (#1) 2024 , 01/02/2020, 11/29/2018, Additional history exists COVID-19 VACCINE ( season) 2024 07/23/2021, 12/31/2020, 05/31/2020, Additional history exists MAMMOGRAM 05/11/2025 05/12/2023, 12/0 05/2020, 01/31/2019, Additional history exists RSV VACCINE (1 - 1-dose 75+ series) 2027 Adult Td,Tdap Booster 07/29/2030 07/29/2020 , 05/14/2017, 09/15/2009 PNEUMOCOCCAL VACCINES (50+ years) Completed 11/29/2018, 11/17/2017 SMOKING STATUS SCREENING (Once After 26 Yrs) Completed 01/25/2023 HEPATITIS A VACCINES Aged Out No long er eligible based on patient's age to complete this topic HIB VACCINES Aged Out No longer eligi ble based on patient's age to complete this topic MENINGOCOCCAL VACCINES (ACWY) Aged Out No longer eligible based on patient's age to complete this topic MENINGOCOCCAL VACCINES (B) Aged Out N o longer eligible based on patient's age to complete this topic Medical Devices Not on file Procedures Procedure Name Priority Date/Time Associated Diagnosis Comments BI MAMMOGRAM SCREENING WITH TOMOSYNTHESIS WITH CAD (BILATERAL) Routine 05/12/2023 11:51 AM EST Breast screening from Last 3 Months or Most Recently Relevant to Health Maintenance Results * BI MAMMOGRAM SCREENING WITH TOMOSYNTHESIS WITH CAD (BILATERAL) (05/12/2023 11:51 AM EST) Anatomical Region Laterality Modality Breast Left, Breast Right, Breast Bilateral Bila teral Mammography 05/18/2023 7:31 AM EST Impressions 05/18/2023 7:33 AM EST No mammographic evidence of malignancy in either breast. Annual screening mammography is recommended. BI-RADS 1 NEGATIVE The patient will be notified of the results and recommendations. Narrative 05/18/2023 7:33 AM EST BI MAMMOGRAM SCREENING WITH TOMOSYNTHESIS WITH CAD (BILATERAL) Additional patient information: Screening. COMPARISON: Comparison is made with relevant prior imaging. Breast composition: The breast tissue is heterogeneously dense which may obscure small masses. FINDINGS: No abnormal masses, suspicious calcifications, or other significant findings are identified mammographically in either breast. Procedure Note Pari Palma MD - 05/18/2023 BI MAMMOGRAM SCREENING WITH TOMOSYNTHESIS WITH CAD (BILATERAL) Additional patient information: Screening. COMPARISON: Comparison is made with relevant prior imaging. Breast composition: The breast tissue is heterogeneously dense which mayobscure small masses. FINDINGS: No abnormal masses, suspicious calcifications, or other significantfindings are identified mammographically in either breast. IMPRESSION: No mammographic evidence of malignancy in either breast. Annual screening mammography is recommended. BI-RADS 1 NEGATIVE The patient will be notified of the results and recommendations. Susan Howard MD IMG MG EXAMS Final Result from Last 3 Months or Most Recently Relevant to Health Maintenance [facility] SUPPLEMENT MEDICARE PART A & B [employer] EXTENSION MEDICARE SUPPLEMENT MEDICARE PART A & B [employer] EXTENSION MEDICARE SUPPLEMENT MEDICARE PART A & B [employer] [facility] EXTENSION MEDICARE SUPPLEMENT MEDICARE PART A & B [employer] EXTENSION MEDICARE SUPPLEMENT MEDICARE PART A & B [employer] EXTENSION MEDICARE SUPPLEMENT MEDICARE PART A & B [facility] EXTENSION MEDICARE SUPPLEMENT MEDICARE PART A & B [facility] EXTENSION MEDICARE SUPPLEMENT MEDICARE PART A & B [facility] EXTENSION MEDICARE SUPPLEMENT MEDICARE PART A & B Care Teams Services Executive Relationship Specialty Start Date End Date Susan Howard MD [email or web address] PCP - General Family Medicine 02/06/23 Additional Source Comments The information contained in this document represents components of the legal health record. It is not the complete legal health record.[facility]
--- OUTSIDE RECORDS SUMMARY | 2024-12-30 13:29 | XMS_ITS | Encounter Summary ---
Author Organization [facility] Address [address] [place] [address] Phone Care Team Providers Care Chart Changer Name Role Phone Susan Howard MD Primary Care Provider + [phone] Susan Howard MD Primary Care Provider + [phone] Encounter Details Date Type Department Care Team (Latest Contact Info) Description 12/29/2022 Transcribe Orders Virtual Department [address] [place] [address] Susan Howard MD [address] [place] [address] [email or web address] Breast screening (Primary Dx) Social History Tobacco Use Types [...] st Contact Info) Description 01/27/2025 Procedure Pass [facility] Endoscopy Admitting Dept Virtual Department [address] [place] [address] 01/27/2025 1:30 PM EST Hospital Encounter [facility] Endoscopy Admitting Dept Virtual Department [address] [place] [address] Jose Hensley MD [address] [place] [address] 01/27/2025 1:30 PM EST - 01/27/2025 2:00 PM EST Surgery [facility] Endoscopy Admitting Dept Virtual Department [address] [place] [address] Jose Hensley MD [address] [place] [address] [email or web address] COLONOSCOPY Scheduled Procedures Name Priority Associated Diagnoses [...] in this encounter Visit Diagnoses Diagnosis Breast screening- Primary Breast screening, unspecified Breast screening Breast screening, unspecified Special screening for malignant neoplasms, colon documented in this encounter Care Teams Chart Changer Relationship Specialty Start Date End Date Susan Howard MD PCP - General 12/29/16 02/05/23 Susan Howard MD [email or web address] PCP - General Family Medicine 02/06/23 documented as of this encounter Additional Source Comments The information contained in this document represents components of the legal health record. It is not the complete legal health record.[facility]
--- OUTSIDE RECORDS SUMMARY | 2024-12-30 13:29 | XMS_ITS | Encounter Summary ---
Author Organization [facility] Address [address] [place] [address] Phone Care Team Providers Care Boat Diesel Motor Mechanic Name Role Phone Susan Howard MD Primary Care Provider + [phone] Susan Howard MD Primary Care Provider + [phone] Encounter Details Date Type Department Care Team (Late st Contact Info) Description 12/29/2022 Procedure Pass [facility], [address] [address] Social History Tobacco Use Types Packs/Day Years [...] Pass [facility] Endoscopy Admitting Dept Virtual Department [address] [place] [address] 01/27/2025 1:30 PM EST Hospital Encounter [facility] Endoscopy Admitting Dept Virtual Department [address] [place] [address] Jose Hensley MD [address] [place] [address] [email or web address] 01/27/2025 1:30 PM EST - 01/27/2025 2:00 PM EST Surgery [facility] Endoscopy Admitting Dept Virtual Department [address] [place] [address] Jose Hensley MD [address] [address] [email or web address] COLONOSCOPY Scheduled Procedures Name Priority Associated Diagnoses Date/Ti me COLONOSCOPY Special screening for malignant neoplasms, colon 01/27/2025 1:30 PM EST documented as of this encounter Visit Diagnoses Not on filedocumented in this encounter Care Teams Boat Diesel Motor Mechanic Relationship Specialty Start Date End Date Susan Howard MD PCP - General 12/29/16 02/05/23 Susan Howard MD PCP - General Family Medicine 02/06/23 documented as of this encounter Additional Source Comments The information contained in this document represents components of the legal health record. It is not the complete legal health record.[facility]
--- OUTSIDE RECORDS SUMMARY | 2024-12-30 13:29 | XMS_ITS | Encounter Summary ---
Author Organization [facility] Address [address] [place] [phone] Phone Care Team Providers Care Product Manufacturing Professional Name Role Phone Susan Howard MD Primary Care Provider + [phone] Susan Howard MD Primary Care Provider + [phone] Encounter Details Date Type Department Care Team (Late st Contact Info) Description 12/31/2016 Ancillary Orders [facility], Mammography- [address] [address] Susan Howard MD [address] [place] [address] Visit for screening mammogram Social History Tobacco Use Types Packs/Day Years [...] Pass [facility] Endoscopy Admitting Dept Virtual Department [address] [place] [address] 01/27/2025 1:30 PM [facility] Hospital Encounter [facility] Endoscopy Admitting Dept Virtual Department [address] [place] [address] Jose Hensley MD [address] [place] [address] [email or web address] 01/27/2025 1:30 PM EST - 01/27/2025 2:00 PM EST Surgery [facility] Endoscopy Admitting Dept Virtual Department [address] [place] [address] Jose Hensley MD [address] [place] [address] [email or web address] COLONOSCOPY Scheduled Procedures Name Priority Associated Diagnoses Date/Ti in COLONOSCOPY Special screening for malignant neoplasms, colon 01/27/2025 1:30 PM EST documented as of this encounter Results * BI MAMMOGRAM SCREENING WITH TOMOSYNTHESIS WITH CAD (BILATERAL) (01/27/2017 9:16 AM EST) Anatomical Region Laterality Modality Breast Left, Breast Right, Breast Bilateral Bila teral Mammography 01/27/2017 10:0 2 AM EST Impressions 01/27/2017 10:05 AM EST Stable appearance of the breasts. No radiographic evidence of malignancy. In the absence of a suspicious palpable abnormality, annual screening mammography is recommended. BI-RADS CATEGORY: 1 - Negative. DENSITY: The breast tissue is heterogeneously dense, an appearance which lowers the sensitivity of mammography. POS [id number] Narrative 01/27/2017 10:05 AM EST COMPARISON: 01/02/2009 through 05/30/2014. Bilateral 3-D tomosynthesis with 2-D reconstructions in the CC and MLO projection of each breast was obtained. Computer-aided detection system also utilized. The overall appearance of the breasts is unchanged. No new mass, asymmetry, calcifications, or skin findings of concern have become apparent. Procedure Note Gian Eckert MD - 01/27/2017 COMPARISON: 01/02/2009 through 05/30/2014. Bilateral 3-D tomosynthesis with 2-D reconstructions in the CC and MLOprojection of each breast was obtained. Computer-aided detection systemalso utilized. The overall appearance of the breasts is unchanged. No new mass,asymmetry, calcifications, or skin findings of concern have becomeapparent. IMPRESSION: Stable appearance of the breasts. No radiographic evidence of malignancy.In the absence of a suspicious palpable abnormality, annual screeningmammography is recommended. BI-RADS CATEGORY: 1 - Negative. DENSITY: The breast tissue is heterogeneously dense, an appearance whichlowers the sensitivity of mammography. POS [id number] Susan Howard MD IMG MG EXAMS Final Result documented in this encounter Visit Diagnoses Diagnosis Visit for screening mammogram Visit for screening mammogram Special screening for malignant neoplasms, colon documented in this encounter Care Teams Product Manufacturing Professional Relationship Specialty Start Date End Date Susan Howard MD [email or web address] PCP - General 12/29/16 02/05/23 Susan Howard MD PCP - General Family Medicine 02/06/23 documented as of this encounter Additional Source Comments The information contained in this document represents components of the legal health record. It is not the complete legal health record.[facility]
--- OUTSIDE RECORDS SUMMARY | 2024-12-30 13:29 | XMS_ITS | Encounter Summary ---
Author Organization [facility] Address [address] [place] [address] Phone Care Team Providers Care Accounting Reconciliation Clerk Name Role Phone Susan Howard MD Primary Care Provider + [phone] Susan Howard MD Primary Care Provider + [phone] Encounter Details Date Type Department Care Team (Latest Contact Info) Description 2022 Transcribe Orders Virtual Department 30 [place] [address] Susan Howard MD 70 [place] [address] [email or web address] Dyspnea on exertion (Primary Dx); Hyperthermia Social History Tobacco Use Types Packs/Day Years Used Date Smoking Tobacco: Never Smokeless Tobacco: Never Alcohol Use Standard Drinks/Week Comments Yes 0 (1 standard drink = 0.6 oz pur e alcohol) Intimate Partner Violence Answer Date R ecorded [...] st Contact Info) Description 01/27/2025 Procedure Pass [facility] Endoscopy Admitting Dept Virtual Department [address] [place] [address] 01/27/2025 1:30 PM EST Hospital Encounter [facility] Endoscopy Admitting Dept Virtual Department [address] [place] [address] Jose Hensley MD [address] [address] .Tr[employer]Screen 01/27/2025 1:30 PM EST - 01/27/2025 2:00 PM EST Surgery [facility] Endoscopy Admitting Dept Virtual Department [address] [place] [address] Jose Hensley MD [address] [place] [address] [email or web address] COLONOSCOPY Scheduled Procedures Name Priority Associated Diagnoses Date/Ti me COLONOSCOPY Special screening for malignant neoplasms, colon 01/27/2025 1:30 PM EST documented as of this encounter Results * Pulmonary Function Test Reason for Exam: Dyspnea/Shortness of Breath; Type of PFT Test: Spirometry with bronchodilator, DLCO, Lung Volumes; Performing Location: [facility] (04/27/2022 12:02 PM EST) FEV1 1.93 liters FVC 2.73 liters FEV1/FVC 71 % TLC 5.15 liters DLCO 15.8 ml/mmHg sec Anatomical Region Laterality Modality Other Impressions 04/27/2022 12:02 PM EST PULMONARY FUNCTION STUDIES IMPRESSION: Overall, unremarkable lung function tests without an identified pulmonary cause of the patient's symptoms. Normal spirometry without evidence of airflow limitation or post-bronchodilator change. Normal lung volumes with the exception of an impaired ERV which likely represents the imprint of body habitus. Normal diffusion capacity. Pulmonary function studies were performed on this 72 y.o. female for evaluation of exertional shortness of breath. Review of the medical record reveals that the patient is a never smoker but has a history of wood-burning stove exposure. Prior pulmonary function studies are not available for comparison. SPIROMETRY: The FEV1 is normal at 1.93 L or 100% predicted. The FVC is normal at 2.73 L or 101% predicted. The FEV1/FVC ratio is normal at 71%. After the administration of a bronchodilator agent, there is no significant change. FLOW-VOLUME LOOPS: Evaluation of the flow-volume loops reveals normal morphology of both the inspiratory and expiratory limbs with no significant difference when comparing the tracings performed pre- and post-bronchodilator. LUNG VOLUME MEASUREMENTS BY NITROGEN WASHOUT: The total lung capacity is normal at 5.15 L or 112% predicted. The functional residual capacity is normal at 2.93 L or 115% predicted. Of note, the ERV is impaired, likely representing the imprint of body habitus. DIFFUSION CAPACITY: The diffusion capacity is normal at 15.8 mL/mmHg sec or 81% predicted. Resting oxygen saturation is 100% on room air. us Susan Howard MD PFT ORDERABLES Final Result * (ABNORMAL) Basic metabolic panel (04/27/2022 11:01 AM EST) SODIUM 134 133 - 146 mmol/L [facility] CHLORIDE 95(L) 96 - 108 mmol/L [facility] POTASSIUM 4.9 3.3 - 5.1 mmol/L [facility] CO2 27 21 - 35 mmol/L [facility] BUN 19 6 - 19 mg/dL [facility] CREATININE 0.90 0.5 - 1.5 mg/dL [facility] GLUCOSE 83 70 - 99 mg/dL [facility] CALCIUM 9.7 8.4 - 10.3 mg/dL [facility] EGFR 69 >59 mL/min/1.7 3m2 [facility] Comment:Estimated glomerular filtration rate calculated using the CKD-EPI refit equation. ANION GAP 17 10 - 20 mmol/L [facility] Blood 04/27/2022 11:0 1 AM EST 04/27/2022 11:02 AM EST Susan Howard MD LAB BLOOD ORDERABLES Final R esult [address] [address] documented in this encounter Visit Diagnoses Diagnosis Dyspnea on exertion- Primary Other dyspnea and respiratory abnormality Hyperthermia Fever, unspecified Dyspnea on exertion Other dyspnea and respiratory abnormality Special screening for malignant neoplasms, colon documented in this encounter Care Teams Accounting Reconciliation Clerk Relationship Specialty Start Date End Date Susan Howard MD PCP - General 12/29/16 02/05/23 Susan Howard MD PCP - General Family Medicine 02/06/23 documented as of this encounter Additional Source Comments The information contained in this document represents components of the legal health record. It is not the complete legal health record.[facility]
--- OUTSIDE RECORDS SUMMARY | 2024-12-30 13:30 | XMS_ITS | Encounter Summary ---
Author Organization [facility] Address [address] [place] [address] Phone Care Team Providers Care Strap Setter Name Role Phone Susan Howard MD Primary Care Provider + [phone] Susan Howard MD Primary Care Provider + [phone] Encounter Details Date Type Department Care Team (Late Contact Info) Description 01/04/2022 Ancillary Orders Non-Invasive Cardiology [address] [place] [address] Susan Howard MD 70 [place] [address] [email or web address] Other form of dyspnea Social History Tobacco [...] [facility] Endoscopy Admitting Dept Virtual Department [address] [place] [address] 01/27/2025 1:30 PM EST Hospital Encounter [facility] Endoscopy Admitting Dept Virtual Department [address] [place] [address] Jose Hensley MD [address] [address] [email or web address] 01/27/2025 1:30 PM EST - 01/27/2025 2:00 PM EST Surgery [facility] Endoscopy Admitting Dept Virtual Department [address] [place] [address] Jose Hensley MD 10 [facility] 2 [place] [address] [email or web address] COLONOSCOPY Scheduled Procedures Name Priority Associated Diagnoses Date/Ti me COLONOSCOPY Special screening for malignant neoplasms, colon 01/27/2025 1:30 PM EST documented as of this encounter Results * NC Stress Result for Nuclear Stress Test (01/04/2022 10:39 AM EDT) Max BP Systolic 144 mmHg [facility] Max BP Diastolic 84 mmHg [facility] Max HR 106 BPM [facility] Resting HR 74 BPM [facility] Resting BP Systolic 144 mmHg [facility] Resting BP Diastolic 84 mmHg [facility] Peak METS 1.0 METS [facility] Peak HR 104 BPM [facility] Anatomical Region Laterality Modality Heart Other 01/04/2022 9:57 AM EDT 01/04/2022 10:38 AM EDT Narrative 01/04/2022 12:37 PM EDT Response to Stress The patient exercised for minutes seconds, achieving 1.0 METS at peak exercise. Baseline blood pressure was 144/84 mmHg, and baseline heart rate was 74 bpm. The patient achieved a peak heart rate of 104 bpm, which is% of their maximum predicted heart rate. 0.4 mg Regadenoson (lexiscan) given IV push over 10 seconds as per protocol immediately followed by injection of Tc99m Sestamibi by [employer] nuclear control room operator. Test was done as a pharmacologic test due to patient reporting SOB and fatigue and unable to walk on incline, which is a medical contradiction to do exercise. 1. EKG - Baseline EKG showed sinus rhythm 76 bpm, LVH, non specific ST abnormalities. After injection of lexiscan, there were an exaggeration of baseline abnormalities in the limb leads, which don't meet strict criteria for ischemia. 2. SYMPTOMS - No chest pain. After injection of lexiscan, patient reported mild abdominal cramping/nausea, which spontaneously resolved 1-2 min into recovery. 3. PHYSIOLOGY - Resting HR was 76 bpm. After Lexiscan injection, HR 106 bpm. 4. ARRHYTHMIAS - No ectopy noted. Conclusion - There were no ischemic EKG changes without symptoms concerning for angina during EKG portion of pharmacological testing. Nuclear images pending and will be reported separately. See attached stress report for full details. Shelly Burdick, DNP, LEAD MINER BLASTING-BC with Dr. Roy . us Susan Howard MD CV NM CARDIAC Final Result documented in this encounter Visit Diagnoses Diagnosis Other form of dyspnea Other form of dyspnea Special screening for malignant neoplasms, colon documented in this encounter Care Teams Strap Setter Relationship Specialty Start Date End Date Susan Howard MD PCP - General 12/29/16 02/05/23 Susan Howard MD PCP - General Family Medicine 02/06/23 documented as of this encounter Additional Source Comments The information contained in this document represents components of the legal health record. It is not the complete legal health record.[facility]
--- OUTSIDE RECORDS SUMMARY | 2024-12-30 13:30 | XMS_ITS | Encounter Summary ---
Author Organization [facility] Address [address] [place] [address] Phone Care Team Providers Care International Operations Manager Name Role Phone Susan Howard MD Primary Care Provider + [phone] Encounter Details Date Type Department Care Team (Late st Contact Info) Description 05/19/2023 Procedure Pass [address] [place] [address] Social History Tobacco Use Types Packs/Day Years [...] Pass [facility] Endoscopy Admitting Dept Virtual Department [address] [place] [address] 01/27/2025 1:30 PM EST Hospital Encounter [facility] Endoscopy Admitting Dept Virtual Department [address] [place] [address] Jose Hensley MD [address] [address] 01/27/2025 1:30 PM EST - 01/27/2025 2:00 PM EST Surgery [facility] Endoscopy Admitting Dept Virtual Department [address] [place] [address] Jose Hensley MD [address] [address] [email or web address] COLONOSCOPY Scheduled Procedures Name Priority Associated Diagnoses Date/Ti me COLONOSCOPY Special screening for malignant neoplasms, colon 01/27/2025 1:30 PM EST documented as of this encounter Visit Diagnoses Not on filedocumented in this encounter Care Teams International Operations Manager Relationship Specialty Start Date End Date Susan Howard MD PCP - General Family Medicine 02/06/23 documented as of this encounter Additional Source Comments The information contained in this document represents components of the legal health record. It is not the complete legal health record.[facility]
--- OUTSIDE RECORDS SUMMARY | 2024-12-30 13:31 | XMS_ITS | Encounter Summary ---
Author Organization [facility] Address [address] [place] [address] Phone Care Team Providers Care Card Placer Name Role Phone Susan Howard MD Primary Care Provider + [phone] Reason for Referral * MRI/CAT Scan - Closed Specialty Diagnoses / Procedures Referred By Contac t Referred To Contact Radiology Diagnoses Spondylosis without myelopathy or radiculopathy, lumbar region Spinal stenosis, lumbar region with neurogenic claudication Procedures MRI Lumbar Spine Helen Carbajal NP Phone: tel: fax: [email or web address] Referral ID Status Reason Start Date Expiration Date Visits Re quested Visits Authorized [id number] Closed 05/19/2023 1 1 Encounter Details Date Type Department Care Team (Latest Contact Info) Description 05/19/2023 Transcribe Orders Virtual Department 30 [place] [address] Helen Carbajal NP [address] [place] [phone] [email or web address] Spondylosis without myelopathy or radiculopathy, lumbar region (Primary Dx); Spinal stenosis, lumbar region with neurogenic claudication Social History Tobacco Use Types Packs/Day Years [...] Pass [facility] Endoscopy Admitting Dept Virtual Department [address] [place] [address] 01/27/2025 1:30 PM EST Hospital Encounter [facility] Endoscopy Admitting Dept Virtual Department [address] [place] [address] Jose Hensley MD [address] [place] [address] 01/27/2025 1:30 PM EST - 01/27/2025 2:00 PM EST Surgery [facility] Endoscopy Admitting Dept Virtual Department [address] [place] [address] Jose Hensley MD [address] [place] [address] [email or web address] COLONOSCOPY Scheduled Procedures Name Priority Associated Diagnoses Date/Ti nh COLONOSCOPY Special screening for malignant neoplasms, colon 01/27/2025 1:30 PM EST documented as of this encounter Results * MRI LUMBAR SPINE (NEURO) WITHOUT CONTRAST (06/01/2023 11:57 AM EDT) Anatomical Region Laterality Modality L-spine Magnetic Resonan ce 06/04/2023 10:5 6 AM EDT Impressions 06/04/2023 10:59 AM EDT Degenerative changes are more pronounced at L4-L5 where there is advanced bilateral facet arthropathy with associated inflammatory changes, as well as moderate bilateral foraminal stenosis. Narrative 06/04/2023 10:59 AM EDT MRI LUMBAR SPINE (NEURO) WITHOUT CONTRAST COMPARISON: XR LUMBOSACRAL SPINE 4 OR MORE VIEWS FINDINGS: Alignment and Vertebrae: Dextroconvex scoliosis. No fracture. Marrow: No bone marrow replacing lesion. Conus: Normal. Findings by level: T12-L1: No significant posterior disc abnormality. No spinal canal or foraminal stenosis. L1-L2: No significant posterior disc abnormality. No spinal canal or foraminal stenosis. L2-L3 Concentric disc bulge. No spinal canal or foraminal stenosis. L3-L4: Concentric disc bulge. No spinal canal stenosis. Mild bilateral foraminal stenosis. L4-L5: Advanced bilateral facet arthropathy with joint effusions and para- articular edema. Ligamentum flavum thickening. Concentric disc bulge. Mild/moderate spinal canal stenosis. Moderate bilateral foraminal stenosis. L5-S1: Bilateral facet arthropathy. No posterior disc abnormality or spinal canal stenosis. No foraminal stenosis. Procedure Note Justin Nowak MD - 06/04/2023 MRI LUMBAR SPINE (NEURO) WITHOUT CONTRAST COMPARISON: XR LUMBOSACRAL SPINE 4 OR MORE VIEWS FINDINGS: Alignment and Vertebrae: Dextroconvex scoliosis. No fracture. Marrow: No bone marrow replacing lesion. Conus: Normal. Findings by level: T12-L1: No significant posterior disc abnormality. No spinal canal orforaminal stenosis. L1-L2: No significant posterior disc abnormality. No spinal canal orforaminal stenosis. L2-L3 Concentric disc bulge. No spinal canal or foraminal stenosis. L3-L4: Concentric disc bulge. No spinal canal stenosis. Mild bilateralforaminal stenosis. L4-L5: Advanced bilateral facet arthropathy with joint effusions andpara- articular edema. Ligamentum flavum thickening. Concentric disc bulge.Mild/moderate spinal canal stenosis. Moderate bilateral foraminalstenosis. L5-S1: Bilateral facet arthropathy. No posterior disc abnormality orspinal canal stenosis. No foraminal stenosis. IMPRESSION: Degenerative changes are more pronounced at L4-L5 where there is advancedbilateral facet arthropathy with associated inflammatory changes, as wellas moderate bilateral foraminal stenosis. Helen Carbajal DIRECTOR OF REAL ESTATE IMG MR XSPECIALTY Final Result documented in this encounter Visit Diagnoses Diagnosis Spondylosis without myelopathy or radiculopathy, lumbar region- Primary Spinal stenosis, lumbar region with neurogenic claudication Spondylosis without myelopathy or radiculopathy, lumbar region Spinal stenosis, lumbar region with neurogenic claudication Special screening for malignant neoplasms, colon documented in this encounter Care Teams Card Placer Relationship Specialty Start Date End Date Susan Howard MD [email or web address] PCP - General Family Medicine 02/06/23 documented as of this encounter Additional Source Comments The information contained in this document represents components of the legal health record. It is not the complete legal health record.[facility]
== END 2024-12-30 12:56 | disposition home or self-care (01) ==
LOC: HO.HOP 11:05
PROVIDERS: PCP Family Medicine; Visit Provider Clinical Nurse Specialist Psychiatric/Mental Health
DX: F51.5 Nightmare disorder (principal); F33.1 Major depressive disorder, recurrent, moderate; F41.1 Generalized anxiety disorder
CPT/HCPCS: 99214

== ENCOUNTER → 2024-12-30 11:05 | Outpatient (BNVA) | payer MEDICARE, OTHER, SELFPAY | PROVIDERS: PCP Family Medicine; Visit Provider Clinical Nurse Specialist Psychiatric/Mental Health | DX: F33.1 Major depressive disorder, recurrent, moderate (principal); F41.1 Generalized anxiety disorder; F51.5 Nightmare disorder; Z79.899 Other long term (current) drug therapy | CPT/HCPCS: 99212 ==

== ENCOUNTER 2025-02-10 13:06 | Outpatient (AMB) | payer MEDICARE, OTHER, SELFPAY ==
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
--- OUTSIDE RECORDS SUMMARY | 2025-02-10 16:45 | XMS_ITS | Encounter Summary ---
Author Organization [facility] Address [address] [place] [address] [place] [address] Phone Care Team Providers Care Crate Builder Name Role Phone Susan Howard MD Primary Care Provider [phone] Susan Howard MD Primary Care Provider Susan Howard MD Primary Care Provider [phone] Encounter Details Date Type Department Care Team (Late st Contact Info) Description 01/07/2019 Ancillary Orders Virtual Department [address] [place] [address] Susan Howard MD [address] [place] [address] [email or web address] Breast screening Social History Tobacco Use Types [...] DENSITY: There are scattered fibroglandular densities. POS -[id number] Narrative 01/31/2019 2:41 PM EST Bilateral full-field [...] DENSITY: There are scattered fibroglandular densities. POS -[id number] us Susan Howard MD IMG MG EXAMS Final Result documented in this encounter Visit Diagnoses Diagnosis Breast screening Breast screening, unspecified Breast screening Breast screening, unspecified documented in this encounter Care Teams Crate Builder Relationship Specialty Start Date End Date Susan Howard MD PCP - General 12/29/16 02/05/23 Susan Howard MD [email or web address] PCP - General Family Medicine 02/06/23 01/13/25 Susan Howard MD [address] [place] [address] [email or web address] PCP - General Family Medicine 01/14/25 documented as of this encounter Additional Source Comments The information contained in this document represents components of the legal health record. It is not the complete legal health record.[facility]
--- OUTSIDE RECORDS SUMMARY | 2025-02-10 16:45 | XMS_ITS | Encounter Summary ---
Author Organization [facility] Address [address] [place] [address] Phone Care Team Providers Care Applied Research Director Name Role Phone Susan Howard MD Primary Care Provider + [phone] Susan Howard MD Primary Care Provider + [phone] Reason for Referral * MRI/CAT Scan - Closed Specialty Diagnoses / Procedures Referred By Contac t Referred To Contact Radiology Diagnoses Spondylosis without myelopathy or radiculopathy, lumbar region Spinal stenosis, lumbar region with neurogenic claudication Procedures MRI Lumbar Spine Helen Carbajal NP Phone: tel: fax: mailto:[email or web address] Referral ID Status Reason Start Date Expiration Date Visits Re quested Visits Authorized [id number] Closed 05/19/2023 1 1 Encounter Details Date Type Department Care Team (Latest Contact Info) Description 05/19/2023 Transcribe Orders Virtual Department [address] [place] [address] Helen Carbajal NP [address] [place] [address] [phone] [email or web address] Spondylosis without myelopathy or radiculopathy, lumbar region [...] XR LUMBOSACRAL SPINE 4 OR MORE VIEWS 2022- FINDINGS: Alignment and Vertebrae: Dextroconvex scoliosis. No [...] wellas moderate bilateral foraminal stenosis. Helen Carbajal NP IMG MR XSPECIALTY Final Result documented in this encounter Visit Diagnoses Diagnosis Spondylosis without myelopathy or radiculopathy, lumbar region- Primary Spinal stenosis, lumbar region with neurogenic claudication Spondylosis without myelopathy or radiculopathy, lumbar region Spinal stenosis, lumbar region with neurogenic claudication documented in this encounter Care Teams Applied Research Director Relationship Specialty Start Date End Date Susan Howard MD [email or web address] PCP - General Family Medicine 02/06/23 01/13/25 Susan Howard MD [address] [place] [phone] PCP - General Family Medicine 01/14/25 documented as of this encounter Additional Source Comments The information contained in this document represents components of the legal health record. It is not the complete legal health record.[facility]
--- OUTSIDE RECORDS SUMMARY | 2025-02-10 16:45 | XMS_ITS | Encounter Summary ---
Author Organization [facility] Address [address] [place] [address] [place] [address] Phone Care Team Providers Care Consumer Loan Specialist Name Role Phone Susan Howard MD Primary Care Provider [phone] Susan Howard MD Primary Care Provider Susan Howard MD Primary Care Provider [phone]- [phone] Encounter Details Date Type Department Care Team (Late st Contact Info) Description 12/31/2016 Ancillary Orders [facility], [facility] [address] [address] Susan Howard MD [address] [place] [address] [phone] [email or web address] Visit for screening mammogram Social History Tobacco [...] which lowers the sensitivity of mammography. POS [id number] Narrative 01/27/2017 10:05 AM EST COMPARISON: 01/02/2009 [...] appearance whichlowers the sensitivity of mammography. POS [id number] Susan Howard MD IMG MG EXAMS Final Result documented in this encounter Visit Diagnoses Diagnosis Visit for screening mammogram Visit for screening mammogram documented in this encounter Care Teams Consumer Loan Specialist Relationship Specialty Start Date End Date Susan Howard MD PCP - General 12/29/16 02/05/23 Susan Howard MD [email or web address] PCP - General Family Medicine 02/06/23 01/13/25 Susan Howard MD [address] [place] [address] [email or web address] PCP - General Family Medicine 01/14/25 documented as of this encounter Additional Source Comments The information contained in this document represents components of the legal health record. It is not the complete legal health record.[facility]
--- OUTSIDE RECORDS SUMMARY | 2025-02-10 16:45 | XMS_ITS | Encounter Summary ---
Author Organization [facility] Address [address] [place] [address] [place] [address] Phone Care Team Providers Care Coating And Embossing Unit Operator Name Role Phone Susan Howard MD Primary Care Provider [phone] Susan Howard MD Primary Care Provider [phone] Susan Howard MD Primary Care Provider + [phone] Encounter Details Date Type Department Care Team (Latest Contact Info) Description 2022 Transcribe Orders Virtual Department [address] [place] [address] Susan Howard MD [address] [place], [place] [phone] [email or web address] Dyspnea on exertion (Primary Dx); Hyperthermia [...] with bronchodilator, DLCO, Lung Volumes; Performing Location: [facility] (04/27/2022 12:02 PM EST) FEV1 1.93 liters [...] 1 AM EST 04/27/2022 11:02 AM EST us Susan Howard MD LAB BLOOD BKR ORDERABLES Fin al Result Performing Organization Address City/State/[facility] Co de Phone Number [address] [address] documented in this encounter Visit Diagnoses Diagnosis Dyspnea on exertion- Primary Other dyspnea and respiratory abnormality Hyperthermia Fever, unspecified Dyspnea on exertion Other dyspnea and respiratory abnormality documented in this encounter Care Teams Coating And Embossing Unit Operator Relationship Specialty Start Date End Date Susan Howard MD PCP - General 12/29/16 02/05/23 Susan Howard MD PCP - General Family Medicine 02/06/23 01/13/25 Susan Howard MD [address] [place] [address] [email or web address] PCP - General Family Medicine 01/14/25 documented as of this encounter Additional Source Comments The information contained in this document represents components of the legal health record. It is not the complete legal health record.[facility]
--- OUTSIDE RECORDS SUMMARY | 2025-02-10 16:45 | XMS_ITS | Encounter Summary ---
Author Organization [facility] Address [address] [place] [address] Phone Care Team Providers Care Geographic Information Systems Manager Name Role Phone Susan Howard MD Primary Care Provider [phone] Susan Howard MD Primary Care Provider [phone] Susan Howard MD Primary Care Provider + [phone] Encounter Details Date Type Department Care Team (Late st Contact Info) Description 12/30/2021 Procedure Pass [facility] [address] [place] [address] Social History Tobacco Use Types Packs/Day Years [...] on file documented as of this encounter Visit Diagnoses Not on filedocumented in this encounter Care Teams Geographic Information Systems Manager Relationship Specialty Start Date End Date Susan Howard MD PCP - General 12/29/16 02/05/23 Susan Howard MD [email or web address] PCP - General Family Medicine 02/06/23 01/13/25 Susan Howard MD [address] [place] [address] PCP - General Family Medicine 01/14/25 documented as of this encounter Additional Source Comments The information contained in this document represents components of the legal health record. It is not the complete legal health record.[facility]
--- OUTSIDE RECORDS SUMMARY | 2025-02-10 16:45 | XMS_ITS | Encounter Summary ---
Author Organization [facility] Address [address] [place] [address] [place] [address] Phone Care Team Providers Care Hop Picker Name Role Phone Susan Howard MD Primary Care Provider [phone] Susan Howard MD Primary Care Provider [phone] Susan Howard MD Primary Care Provider [phone] Encounter Details Date Type Department Care Team (Late st Contact Info) Description 01/04/2022 Ancillary Orders Non-Invasive Cardiology [address] [place] [address] Susan Howard MD [address] [place], [place] [phone] [email or web address] Other form of dyspnea Social History Tobacco [...] AM EDT) Max BP Systolic 144 mmHg [facility] Max BP Diastolic 84 mmHg [facility] Max HR 106 BPM [facility] Resting HR 74 BPM [facility] Resting BP Systolic 144 mmHg [facility] Resting BP Diastolic 84 mmHg [facility] Peak METS 1.0 METS [facility] Peak HR 104 BPM [facility] Anatomical Region Laterality Modality Heart Other 01/04/2022 [...] injection of Tc99m Sestamibi by [employer] nuclear pharmacist. Test was done as a pharmacologic test [...] stress report for full details. Shelly Burdick, SUDHEER, PHARMACIST IN CHARGE OWNER-BC with Dr. Roy . us Susan Howard MD CV NM CARDIAC Final Result documented in this encounter Visit Diagnoses Diagnosis Other form of dyspnea Other form of dyspnea documented in this encounter Care Teams Hop Picker Relationship Specialty Start Date End Date Susan Howard MD PCP - General 12/29/16 02/05/23 Susan Howard MD [email or web address] PCP - General Family Medicine 02/06/23 01/13/25 Susan Howard MD [address] [place] [address] PCP - General Family Medicine 01/14/25 documented as of this encounter Additional Source Comments The information contained in this document represents components of the legal health record. It is not the complete legal health record.[facility]
--- OUTSIDE RECORDS SUMMARY | 2025-02-10 16:45 | XMS_ITS | Encounter Summary ---
Author Organization [facility] Address [address] [place] [address] [place] [address] Phone Care Team Providers Care Material Control Supervisor Name Role Phone Susan Howard MD Primary Care Provider + [phone] Susan Howard MD Primary Care Provider + [phone] Encounter Details Date Type Department Care Team (Late st Contact Info) Description 02/06/2023 Ancillary Orders [facility], X-Ray - [address] [address] Helen Carbajal, GEOMATICS PROFESSOR [address] [place] [phone] [email or web address] Lumbar spondylosis Social History Tobacco Use Types [...] degenerative change. Dextroconvex lumbar scoliosis. Helen Carbajal GEOMATICS PROFESSOR IMG XR SPINE Final Result documented in this encounter Visit Diagnoses Diagnosis Lumbar spondylosis Lumbosacral spondylosis without myelopathy Lumbar spondylosis Lumbosacral spondylosis without myelopathy documented in this encounter Care Teams Material Control Supervisor Relationship Specialty Start Date End Date Susan Howard MD PCP - General Family Medicine 02/06/23 01/13/25 Susan Howard MD [address] [place] [phone] PCP - General Family Medicine 01/14/25 documented as of this encounter Additional Source Comments The information contained in this document represents components of the legal health record. It is not the complete legal health record.[facility]
--- OUTSIDE RECORDS SUMMARY | 2025-02-10 16:45 | XMS_ITS | Encounter Summary ---
Author Organization [facility] Address [address] [place] [address] [place] [address] Phone Care Team Providers Care Superintendent Pier Name Role Phone Susan Howard MD Primary Care Provider [phone] Susan Howard MD Primary Care Provider + [phone] Susan Howard MD Primary Care Provider + [phone] Encounter Details Date Type Department Care Team (Late st Contact Info) Description 12/29/2022 Procedure Pass [facility], [facility] [address] [place] [address] Social History Tobacco Use Types Packs/Day Years [...] on filedocumented in this encounter Care Teams Superintendent Pier Relationship Specialty Start Date End Date Susan Howard MD PCP - General 12/29/16 02/05/23 Susan Howard MD PCP - General Family Medicine 02/06/23 01/13/25 Susan Howard MD [address] [place] [phone] PCP - General Family Medicine 01/14/25 documented as of this encounter Additional Source Comments The information contained in this document represents components of the legal health record. It is not the complete legal health record.[facility]
--- OUTSIDE RECORDS SUMMARY | 2025-02-10 16:45 | XMS_ITS | Clinical Summary ---
Author Organization [facility] Address [address] [place] [id number] Phone Care Team Providers Care [employer] Name Role Phone Susan Howard MD Primary Care Provider [phone] Allergies Active Allergy Reactions Criticality Noted Date [...] IN THE EVENING 10/12/2020 Active traZODone (DESYREL) 50 MG tablet Take 25 mg by mouth nightly at bedtime. 11/10/2020 Active busPIRone (BUSPAR) 10 MG tablet Take 15 mg by mouth 2 (two) times a day. 11/22/2021 Active sertraline (ZOLOFT) 25 MG tablet 0.75 tablets daily. 03/11/2022 Active LORazepam (ATIVAN) 0.5 MG tablet TAKE 1/2 TO 1 TABLET BY MOUTH UP TO TWICE A DAY NEEDED FOR ANXIETY 05/25/2022 Active aspirin 81 mg chewable tablet Take 81 mg by mouth. Active melatonin 3 mg Tab Take 3 mg by mouth nightly at bedtime. Active methenamine (HIPREX) 1 gram tablet Take 1 tablet by mouth daily. 11/11/2022 Active mirtazapine (REMERON) 7.5 MG tablet Take 0.5 tablets by mouth nightly at bedtime. 10/18/2022 Active cranberry fruit 400 mg Tab Take 400 mg by mouth daily. Active ascorbic acid, vitamin C, 500 mg Cap Take by mouth daily. Active cholecalciferol (VITAMIN D3) 25 MCG (1,000 unit) tablet Take 1,000 Units by mouth daily. Active sertraline (ZOLOFT) 50 MG tablet Take 0.75 mg by mouth daily. 01/10/2025 Active Active Problems Problem Noted Date Diagnosed [...] beta-mary and see if that helps her. Encounters Date Type Department Care Team Description 01/27/2025 1:30 PM EST - 01/27/2025 2:00 PM EST Surgery [facility] Admitting Dept Virtual Department [address] [place] [id number] Nolan Chandra MD COLONOSCOPY 01/27/2025 12:52 PM EST Anesthesia Event [facility] Admitting [facility] Virtual Department [address] [place] [address] Xavi Martínez MD 01/27/2025 12:01 PM EST - 01/27/2025 1:42 PM EST Hospital Encounter [facility] Virtual Department [address] [place] [address] Nolan Chandra MD Discharge Disposition: Home or Self Care 01/27/2025 Procedure Pass [facility] Admitting [facility] Virtual Department [address] [place] [address] 01/17/2025 11:00 AM EST Pre-Admission Testing Pre Procedure Evaluation [address] [place] [address] Nolan Chandra MD from Last 3 Months Family History Medical History Relation Comments Stroke Father Pancreatic cancer Mother Melanoma Sister Relation Status Comments Father Mother Sister Social History Tobacco Use Types Packs/Day Years Used Date Smoking Tobacco: Never Smokeless Tobacco: Never Tobacco Cessation:Counseling Given: Not Answered Alcohol Use Standard Drinks/Week Comments Yes 7 (1 standard drink = 0.6 oz pur [...] as food, clothing, or medical care? No 01/27/2025 In the past 12 months have y ou been in a relationship with a person who hurts, threatens, or tries to control you? No 01/27/2025 Are you denied basic needs s uch as food, clothing, or medical care? No 01/27/2025 In the past 12 months have y ou been in a relationship with a person who hurts, threatens, or tries to control you? No 01/27/2025 Comments No Sex and Gender Information Value Date Recorded Sex Assigned at Not on file Legal Sex Female 9:59 PM EDT Gender Identity Not on file Sexual Orientation Not on file Last Filed Vital Signs Vital Sign Reading Time Taken Comments Blood Pressure 147/87 01/27/2025 1:32 PM EST Pulse 72 01/27/2025 1:32 PM EST Temperature 36 C (96.8 F) 01/27/2025 1:10 PM EST Respiratory Rate 11 01/27/2025 1:32 PM EST Oxygen Saturation 100% 01/27/2025 1:32 PM EST Inhaled Oxygen Concentration - - Weight 79.4 kg (175 lb) 01/17/2025 2:29 PM EST Height 160 cm (5' 2.99 ) 01/17/2025 2:29 PM EST Body Mass Index 31.01 01/17/2025 2:29 PM EST Plan of Treatment Health Maintenance Due Date Last Done Comments LIPID PANEL 1950 DEPRESSION SCREENING 1964 HEPATITIS C SCREENING 1970 COLOGUARD 1997 FIT TEST 1997 FOBT 1997 SIGMOIDOSCOPY 1997 VIRTUAL COLONOSCOPY 1997 OSTEOPOROSIS SCREENING INITIAL (ONE-TIME) 2017 BLOOD PRESSURE 07/28/2024 01/29/2024 MAMMOGRAM 05/11/2025 05/12/2023, 12/0 05/2020, 01/31/2019, Additional history exists COVID-19 VACCINE (2024- season) 2025 11/28/2024, 06/24/2024, 12/21/2023, Additional history exists Adult Td,Tdap Booster 07/29/2030 07/29/2020 , 05/14/2017, 09/15/2009 COLONOSCOPY 01/28/2032 01/27/2025 COLORECTAL CANCER SCREENING 01/28/2032 PNEUMOCOCCAL VACCINES (50+ years) Completed 11/29/2018, 11/17/2017 RSV VACCINE Completed 01/06/2023 ZOSTER VACCINES Completed 10/26/2024, 07/05/2024 INFLUENZA VACCINE Completed 12/20/2024, , 01/04/2023, Additional history exists SMOKING STATUS SCREENING (Once After 26 Yrs) Completed 01/17/2025 HEPATITIS A VACCINES Aged Out No long [...] Procedure Name Priority Date/Time Associated Diagnosis Comments TISSUE EXAM Routine 01/27/2025 1:03 PM EST PA COLSC FLX W/RMVL OF TUMOR POLYP LESION SNARE TQ 01/27/2025 12:50 PM EST Special screening for malignant neoplasms, colon Special Needs direct PA COLONOSCOPY W/BIOPSY SINGLE/MULTIPLE 01/27/2025 12:50 PM EST Special screening for malignant neoplasms, colon Special Needs direct PA COLONOSCOPY FLX DX W/COLLJ SPEC WHEN PFRMD 01/27/2025 12:50 PM EST Special screening for malignant neoplasms, colon Special Needs direct ENDOSCOPY, COLON 01/27/2025 12:4 3 PM EST BI MAMMOGRAM SCREENING WITH TOMOSYNTHESIS WITH CAD (BILATERAL) Routine 05/12/2023 11:51 AM EST Breast screening from Last 3 Months or Most Recently Relevant to Health Maintenance Results * Tissue Exam (01/27/2025 1:03 PM EST) Final Pathologic Diagnosis A. PROXIMAL ASCENDING COLON POLYP, COLD SNARE REMOVAL: No pathologic abnormality. No evidence of adenomatous change. 01/28/2025 5:06 PM [facility] at 1706 EST Clinical History Pre-op diagnosis: Special screening for malignant neoplasms, colon [Z12.11] 01/28/2025 5:06 PM [facility] Gross Description A. COLON, ASCENDING; PROXIMAL ASCENDING COLON: Received in formalin is a 0.4 x 0.2 x 0.1 cm irregular portion of aceves-pink mucosal tissue which is submitted in toto in a single cassette labeled A1. 01/28/2025 5:06 PM [facility] Grossed By [facility] 01/28/2025 5:06 PM EST [facility] Result Priority Level Routine 01/28/2025 5:06 PM EST [facility] Disclaimer By their signature above, the pathologist listed as making the Final Diagnosis certifies that they have personally reviewed the case and confirmed the diagnosis. All slides and stains were of sufficient quality to establish the diagnosis, unless otherwise stated. Due to loss of elastic tension and/or tissue shrinkage in formalin, the clinical sizes of tissue specimens may be larger than those provided in this report. 01/28/2025 5:06 PM EST [facility] Procedure COLONOSCOPY 01/28/2025 5:06 PM EST [facility] Gastrointestinal Tissue (Colon, Ascending) 01/27/2025 1:03 PM EST 01/27/2025 2:32 PM EST Comment:Pre-op diagnosis: Special screening for malignant neoplasms, colon [Z12.11] Nolan Chandra MD LAB PATHOLOGY ORDERABLES Final Result [address] [address] * ENDOSCOPY, COLON (01/27/2025 12:43 PM EST) Narrative Transcriptions Nolan Chandra MD - 01/27/2025 12:43 PM EST [facility] Patient Name: Neetu Corrine Attending MD:: NOLAN CHANDRA MD, Procedure Date: 01/27/2025 12:43PM Date of : 1950 Age: 74 Admit Type: Outpatient Gender: Female Room: [place] [address] Referring MD: Susan Howard Exam Type: Colonoscopy Indications: Screening for colorectal malignant neoplasm, Last colonoscopy: August 2014 Medications: Monitored Anesthesia Care Procedure: Informed consent was obtained from the patientafter discussion of the indications, limitations, alternatives, benefits, and risks of the procedure. Risks specifically discussed include but are not limited to medication reactions, missed lesions, bleeding, perforation, or the need for emergent surgery. Throughout the procedure, the patient's blood pressure, pulse, end-tidal CO2, and oxygensaturations were monitored continuously. The Olympus pediatric variable colonoscopePCF-[id number] #1 was introduced through the anus and advanced tothe cecum, identified by the appendiceal orifice, ileocecal valve and palpation. The colonoscopy was technically difficult and complex due tosignificant looping and a tortuous colon. Successful completionof the procedure was aided by applying abdominal pressure. The patient tolerated the procedurefairly well. The quality of the bowel preparation was evaluated using the BBPS ([place] Bowel Preparation Scale) with scores of: Right Colon = 3, Transverse Colon = 3 and Left Colon = 3 (entire mucosa seenwell with no residual staining, small fragments of stoolor opaque liquid). The total BBPS score equals 9. The ileocecal valve, appendiceal orifice, and rectumwere photographed. Complications: No immediate complications. Estimated blood loss: Minimal. Findings: The perianal and digital rectal examinations were normal. Pertinent negatives include normalsphincter tone. The colon (entire examined portion) was moderately tortuous. A 4 mm polyp was found in the proximal ascending colon. The polyp was sessile. The polyp was removed with a cold snare. Resection and retrieval were complete. Estimated blood loss was minimal. Retroflexion in the right colon was performed. A few small-mouthed diverticula were found in the descending colon. The exam was otherwise without abnormality ondirect and retroflexion views. Impression: - Tortuous colon. - One 4 mm polyp in the proximal ascending colon, removed with a cold snare. Resected andretrieved. - Diverticulosis in the descending colon. - The examination was otherwise normal on directand retroflexion views. Recommendation: - I will send results of your biopsy to you and your referringphysician or provider. If you do not receive notification within 3 weeks,please call our office. - Repeat colonoscopy in 7-10 years for surveillance based onpathology results. NOLAN CHANDRA MD 01/27/2025 1:11:26 PM This report has been signed electronically. Number of Addenda: 0 Note Initiated On: 01/27/2025 12:43 PM Procedure Code(s): --- Professional --- 71220, Colonoscopy, flexible; with removal of tumor(s), polyp(s), or other lesion(s) by snare technique --- Technical --- 06094, Colonoscopy, flexible; with removal of tumor(s), polyp(s), or other lesion(s) by snare technique Diagnosis Code(s): --- Professional --- Z12.11, Encounter for screening for malignantneoplasm of colon D12.2, Benign neoplasm of ascending colon K57.30, Diverticulosis of large intestine without perforation or abscess without bleeding Q43.8, Other specified congenital malformations of intestine --- Technical --- Z12.11, Encounter for screening for malignantneoplasm of colon D12.2, Benign neoplasm of ascending colon K57.30, Diverticulosis of large intestine without perforation or abscess without bleeding Q43.8, Other specified congenital malformations of intestine CPT copyright 2021 [employer]. All rights reserved. The codes documented in this report are preliminary and upon adjuster piano action reviewmay be revised to meet current compliance requirements. Procedure Date: 01/27/2025 12:43:[address] [place] [address] us Susan Howard MD GI PROCEDURE ORDERABLES Karla woody Result * BI MAMMOGRAM SCREENING WITH TOMOSYNTHESIS WITH [...] Most Recently Relevant to Health Maintenance [facility] Member Subscriber Plan / Payer (Ef fective 2018-Present) Name:Neetu Castle Relation to Subscriber:Self Name:Neetu Castle Payer ID:[id number] (NAIC) Type:Indemnity Address: [address] [address] MEDICARE PART A & B [employer] MEDICARE SUPPLEMENT MEDICARE PART A & B Member Subscriber Plan / Payer (Ef fective 2018-Present) Name:Neetu Castle Member ID:[id number] Relation to Subscriber:Self Name:Neetu Castle Subscriber ID:[id number] Payer ID:[id number] Group ID:Not on file Type:Medicare Address: [employer] [address] [employer] MEDICARE SUPPLEMENT MEDICARE PART A & B [facility] MEDICARE SUPPLEMENT MEDICARE PART A & B [employer] MEDICARE SUPPLEMENT MEDICARE PART A & B [employer] MEDICARE SUPPLEMENT MEDICARE PART A & B [facility] MEDICARE SUPPLEMENT Member Subscriber Plan / Payer ( fective 2018-Present) Name:CorrineNeetu hernandez Relation to Subscriber:Self Name:Neetu Castle Payer ID:[id number] (NAIC) Type:Indemnity Address: [address] [address] MEDICARE PART A & B [facility] MEDICARE SUPPLEMENT Member Subscriber Plan / Payer ( fective 2018-Present) Name:Neetu Castle Relation to Subscriber:Self Name:Neetu Castle Payer ID:[id number] (NAIC) Type:Indemnity Address: [address] [address] MEDICARE PART A & B [facility] MEDICARE SUPPLEMENT Member Subscriber Plan / Payer (Ef fective 2018-Present) Name:Neetu Castle Relation to Subscriber:Self Name:Neetu Castle Payer ID:[id number] (NAIC) Type:Indemnity Address: [address] [address] MEDICARE PART A & B Care Teams [employer] Relationship Specialty Start Date End Date Susan Howard MD [address] [place] [id number] PCP - General Family Medicine 01/14/25 Additional Source Comments The information contained in this document represents components of the legal health record. It is not the complete legal health record.[facility]
--- OUTSIDE RECORDS SUMMARY | 2025-02-10 16:45 | XMS_ITS | Encounter Summary ---
Author Organization [facility] Address [address] [place] [address] Phone Care Team Providers Care [employer] F[employer] Name Role Phone Susan Howard MD Primary Care Provider [phone] Susan Howard MD Primary Care Provider + [phone] Susan Howard MD Primary Care Provider + [phone] Reason for Referral * MRI/CAT Scan - Closed Specialty Diagnoses / Procedures Referred By Contac t Referred To Contact Radiology Diagnoses Other form of dyspnea Procedures NC Myocardial Perfusion Pharmacologic Stress Multiple Susan Howard MD Phone: tel: fax: mailto:[email or web address] Referral ID Status Reason Start Date Expiration Date Visits Re quested Visits Authorized [id number] Closed 12/30/2021 12/30/2022 4 4 * Outpatient Procedure - Closed Specialty Diagnoses / Procedures Referred By Contac t Referred To Contact Diagnoses Other form of dyspnea Procedures Adult Echo TTE Susan Howard MD Phone: tel: fax: mailto:[email or web address] Referral ID Status Reason Start Date Expiration Date Visits Re quested Visits Authorized [id number] Closed 12/30/2021 12/30/2022 1 1 Encounter Details Date Type Department Care Team (Latest Contact Info) Description 12/30/2021 Transcribe Orders Virtual Department [address] [place] [address] Susan Howard MD [address] [place] [address] [email or web address] Other form of dyspnea Social History [...] within normal limits at approximately 86%. POS [id number] Narrative 01/04/2022 12:50 PM EDT COMPARISON: None [...] is withinnormal limits at approximately 86%. POS [id number] us Susan Howard MD CV NM CARDIAC [...] dyspnea documented in this encounter Care Teams [employer] Relationship Specialty Start Date End Date Susan Howard MD PCP - General 12/29/16 02/05/23 Susan Howard MD PCP - General Family Medicine 02/06/23 01/13/25 Susan Howard MD [address] [place] [address] PCP - General Family Medicine 01/14/25 documented as of this encounter Additional Source Comments The information contained in this document represents components of the legal health record. It is not the complete legal health record.[facility]
--- OUTSIDE RECORDS SUMMARY | 2025-02-10 16:45 | XMS_ITS | Encounter Summary ---
Author Organization [facility] Address [address] [place] [address] [place] [address] Phone Care Team Providers Care Rotary Derrick Operator Name Role Phone Susan Howard MD Primary Care Provider [phone] Susan Howard MD Primary Care Provider +[phone]- [phone] Susan Howard MD Primary Care Provider + [phone] Encounter Details Date Type Department Care Team (Latest Contact Info) Description 01/12/2022 Transcribe Orders [facility] Phleb Sis [address] [facility] 2nd [place] [address] Kirsten Smith CNP [address] [place] [address] [email or web address] Diarrhea, unspecified type (Primary Dx) Social History [...] EST) Parasitic exam (SEE NOTE)(A) [facility] DPT OF LAB MED AND PAT+ Comment: (NOTE) SOURCE: STOOL OVA AND PARASITE, MICROSCOPY, F FINAL BLASTOCYSTIS HOMINIS Detected, few Cryptosporidium, Cyclospora, and microsporidia are not readily detected by this method. Stool (Stool) 01/17/2022 9:4 0 AM EST 01/17/2022 3:46 PM EST Kirsten Smith [facility] LAB BODY FLUIDS AND STOOL ORDERABLES Final Result Performing Organization Address [facility] Phone Number [facility] DPT OF LAB MED AND PAT+ [address] [place] [address] * (ABNORMAL) Ova and parasites, stool (01/17/2022 9:40 AM EST) Parasitic exam (SEE NOTE)(A) [facility] DPT OF LAB MED AND PAT+ Comment: (NOTE) SOURCE: STOOL OVA AND PARASITE, MICROSCOPY, F FINAL BLASTOCYSTIS HOMINIS Detected, moderate Cryptosporidium, Cyclospora, and microsporidia are not readily detected by this method. Stool (Stool) 01/17/2022 9:4 0 AM EST 01/17/2022 3:49 PM EST Kirsten Smith [facility] LAB BODY FLUIDS AND STOOL ORDERABLES Final Result Performing Organization Address [facility] Phone Number [facility] DPT OF LAB MED AND PAT+ [address] [place] [address] * Giardia antigen screen (01/17/2022 9:40 AM EST) ST GIARDIA ANTIGEN Negative Negative [facility] DPT OF LAB MED AND PAT+ Comment: (NOTE) ADDITIONAL INFORMATION Test Performed by Enzyme Immunoassay. Stool (Stool) 01/17/2022 9:4 0 AM EST 01/17/2022 3:51 PM EST Kirsten Smith [facility] LAB BODY FLUIDS AND STOOL ORDERABLES Final Result Performing Organization Address [facility] de Phone Number [facility] DPT OF LAB MED AND PAT+ [address] [place] [address] * Cryptosporidium antigen, stool ([place] sendout) (01/17/2022 9:40 AM EST) Pathologist [facility] CRYPTOSPORIDIUM AG, STOOL Negative Negative [facility] DPT OF LAB MED AND PAT+ Comment: (NOTE) ADDITIONAL INFORMATION Test Performed by Enzyme Immunoassay. Stool (Stool) 01/17/2022 9:4 0 AM EST 01/17/2022 3:51 PM EST Kirsten Smith CNP MICROBIOLOGY - GENERAL ORD ERABLES Final Result Performing Organization Address City/[facility]/ZIP Co de Phone Number [facility] DPT OF LAB MED AND PAT+ [address] [place] [address] * Stool culture (01/17/2022 9:40 AM EST) Pathologist [facility] Special Requests None 01/17/2022 3:38 PM EST [facility] Stool Culture NO SALMONELLA, SHIGELLA OR CAMPYLOBACTER ISOLATED 01/20/2022 7:58 AM EST [facility] Stool (Stool) 01/17/2022 9:4 0 AM EST 01/17/2022 3:52 PM EST Kirsten Smith [facility] LAB MICROBIOLOGY CULTURE O RDERABLES Final Result [facility] [address] [place] [address] * Calprotectin, stool (01/17/2022 9:40 AM EST) STOOL CALPROTECTIN <5 mcg/g [facility] Comment: (NOTE) Reference Range: <50 Normal 50-120 [...] EST 01/17/2022 3:49 PM EST Kirsten Smith [facility] LAB BODY FLUIDS AND STOOL ORDERABLES Final Result Performing Organization Address City/[facility]/ZIP Co de Phone Number [facility] [address] [place] [address], [facility] [phone] * (ABNORMAL) Ova and parasites, stool (01/15/2022 10:00 AM EDT) Parasitic exam (SEE NOTE)(A) [facility] DPT OF LAB MED AND PAT+ Comment: (NOTE) SOURCE: STOOL OVA AND PARASITE, MICROSCOPY, F FINAL BLASTOCYSTIS HOMINIS Detected, moderate Cryptosporidium, Cyclospora, and microsporidia are not readily detected by this method. Stool (Stool) 01/15/2022 10: 00 AM EDT 01/17/2022 3:44 PM EST Kirsten Smith [facility] LAB BODY FLUIDS AND STOOL ORDERABLES Final Result Performing Organization Address [facility] de Phone Number [facility] DPT OF LAB MED AND PAT+ [address] [place] [address] * HELICOBACTER PYLORI WITH CLARITHROMYCIN RESISTANCE PREDS (01/14/2022 10:00 AM EDT) Specimen Source STOOL [facility] DPT OF LAB MED AND PAT+ Helicobacter pylori Result Not Detected Not Detected [facility] DPT OF LAB MED AND PAT+ Comment: (NOTE) ADDITIONAL INFORMATION This test was developed and its performance characteristics determined by [facility] in a manner consistent with CLIA requirements. This test has not been cleared or approved by the U.S. Food and Drug Administration. Clarithromycin Resistance Result Test component not applicable or not reported. [facility] DPT OF LAB MED AND PAT+ Blood 01/14/2022 10:0 0 AM EDT 01/17/2022 3:48 PM EST Kirsten Smith [facility] BODY FLUIDS AND STOOLS ORD ERABLES Final Result [facility] DPT OF LAB MED AND PAT+ [address] [place] [address] * C-Reactive Protein (01/12/2022 1:40 PM EDT) Pathologist [facility] C REACTIVE PROTEIN <3.0 0.0 - 4.0 mg/L [facility] Blood 01/12/2022 1:40 PM EDT 01/12/2022 1:52 PM EDT Kirsten Smith [facility] LAB BLOOD BKR ORDERABLES F inal Result Performing Organization Address City/[facility]/ZIP Co de Phone Number [facility] [address] [place] [address] * (ABNORMAL) Comprehensive metabolic panel (01/12/2022 1:40 PM EDT) SODIUM 130(L) 133 - 146 mmol/L [facility] POTASSIUM 4.6 3.3 - 5.1 mmol/L [facility] CHLORIDE 93(L) 96 - 108 mmol/L [facility] CO2 27 21 - 35 mmol/L [facility] BUN 19 6 - 19 mg/dL [facility] CREATININE 0.90 0.5 - 1.5 mg/dL [facility] GLUCOSE 102(H) 70 - 99 mg/dL [facility] ALBUMIN 4.6 3.9 - 4.8 g/dL [facility] TOTAL PROTEIN 7.8 6.5 - 8.0 g/dL [facility] CALCIUM 9.5 8.4 - 10.3 mg/dL [facility] ALKALINE PHOSPHATASE 95 39 - 117 U/L [facility] TOTAL BILIRUBIN 0.5 0.0 - 1.2 mg/dL [facility] AST 28 0 - 37 U/L [facility] ALT 18 0 - 40 U/L [facility] GLOBULIN 3.2 1 - 4.8 g/dL [facility] EGFR 69 >59 mL/min/1.7 3m2 [facility] Comment:Estimated glomerular filtration rate calculated using the CKD-EPI refit equation. ANION GAP 15 10 - 20 mmol/L [facility] Blood 01/12/2022 1:40 PM EDT 01/12/2022 1:52 PM EDT us Kirsten Reed Luis [facility] LAB BLOOD BKR ORDERABLES F inal Result [facility] [address] [place] [address] * CBC and differential (01/12/2022 1:40 PM EDT) WBC 6.90 4.00 - 11.00 K/uL [facility] RBC 4.38 3.72 - 5.30 M/uL [facility] HGB 13.0 11.4 - 15.9 g/dL [facility] HCT 37.6 34.2 - 46.8 % [facility] PLT 353 140 - 430 K/uL [facility] MCV 85.8 78.0 - 97.0 fL [facility] MCH 29.7 25.0 - 33.0 pg [facility] MCHC 34.6 32.0 - 36.0 g/dL [facility] RDW 12.4 11.0 - 16.0 % [facility] MPV 10.0 8.4 - 12.8 fl [facility] DIFF METHOD Auto [facility] NEUTS 60.8 43.0 - 75.0 % [facility] LYMPHS 24.8 18.2 - 47.4 % [facility] MONOS 7.4 4.00 - 11.00 % [facility] EOS 6.2 0.0 - 8.0 % [facility] BASOS 0.7 0.0 - 2.0 % [facility] Granulocytes, immature (%) 0.1 0.0 - 0.9 % [facility] ABSOLUTE NEUTS 4.19 1.80 - 7.70 K/uL [facility] ABSOLUTE LYMPHS 1.71 1.00 - 3.10 K/uL [facility] ABSOLUTE MONOS 0.51 0.20 - 0.80 K/uL [facility] ABSOLUTE EOS 0.43 0.00 - 0.80 K/uL [facility] ABSOLUTE BASOS 0.05 0.00 - 0.09 K/uL [facility] Granulocytes, immature 0.01 0.00 - 0.05 K/uL [facility] Blood 01/12/2022 1:40 PM EDT 01/12/2022 1:52 PM EDT Kirsten Reed [facility] LAB BLOOD BKR ORDERABLES F inal Result Performing Organization Address City/[facility]/ZIP Co de Phone Number [address] [address] * Immunoglobulin A (01/12/2022 1:40 PM EDT) IgA 252 70 - 400 mg/dL [facility] Blood 01/12/2022 1:40 PM EDT 01/12/2022 1:52 PM EDT [facility] LAB [facility]OD BKR ORDERABLES F inal Result Performing Organization Address [facility]/ZIP Co de Phone Number [address] [address] * Tissue transglutaminase IgA (01/12/2022 1:40 PM EDT) TTG IGA ANTIBODY <1.2 <4.0 (Negative) U/mL [facility] Blood 01/12/2022 1:40 PM EDT 01/12/2022 1:51 PM EDT [facility] LAB BLOOD BKR ORDERABLES F inal Result Performing Organization Address City/[facility]/ZIP Co de Phone Number [facility] [address] [address] [place] [address] documented in this encounter Visit Diagnoses Diagnosis Diarrhea, unspecified type- Primary documented in this encounter Care Teams Rotary Derrick Operator Relationship Specialty Start Date End Date Susan Howard MD [email or web address] PCP - General 12/29/16 02/05/23 Susan Howard MD [email or web address] PCP - General Family Medicine 02/06/23 01/13/25 Susan Howard MD [address] [place] [address] [email or web address] PCP - General Family Medicine 01/14/25 documented as of this encounter Additional Source Comments The information contained in this document represents components of the legal health record. It is not the complete legal health record.[facility]
--- OUTSIDE RECORDS SUMMARY | 2025-02-10 16:45 | XMS_ITS | Encounter Summary ---
Author Organization [facility] Address [address] [place] [address] [place] [address] Phone Care Team Providers Care Sand Technician Name Role Phone Susan Howard MD Primary Care Provider [phone] Susan Howard MD Primary Care Provider [phone] Susan Howard MD Primary Care Provider [phone] Encounter Details Date Type Department Care Team (Latest Contact Info) Description 12/29/2022 Transcribe Orders Virtual Department [address] [place] [address] Susan Howard MD [address] [place], [place] [phone] [email or web address] Breast screening (Primary Dx) Social History [...] unspecified documented in this encounter Care Teams Sand Technician Relationship Specialty Start Date End Date Susan Howard MD PCP - General 12/29/16 02/05/23 Susan Howard MD PCP - General Family Medicine 02/06/23 01/13/25 Susan Howard MD [address] [place] [address] PCP - General Family Medicine 01/14/25 documented as of this encounter Additional Source Comments The information contained in this document represents components of the legal health record. It is not the complete legal health record.[facility]
--- OUTSIDE RECORDS SUMMARY | 2025-02-10 16:45 | XMS_ITS | Encounter Summary ---
Author Organization [facility] Address [address] [place] [address] Phone Care Team Providers Care Helper Metal Hanging Name Role Phone Susan Howard MD Primary Care Provider [phone]- [phone] Susan Howard MD Primary Care Provider [phone]- [phone] Susan Howard MD Primary Care Provider [phone]- [phone] Encounter Details Date Type Department Care Team (Late st Contact Info) Description 01/05/2021 Procedure Pass [facility] [address] [place] [address] Social History Tobacco Use Types Packs/Day Years [...] on filedocumented in this encounter Care Teams Helper Metal Hanging Relationship Specialty Start Date End Date Susan Howard MD PCP - General 12/29/16 02/05/23 Susan Howard MD PCP - General Family Medicine 02/06/23 01/13/25 Susan Howard MD [address] [place] [address] [email or web address] PCP - General Family Medicine 01/14/25 documented as of this encounter Additional Source Comments The information contained in this document represents components of the legal health record. It is not the complete legal health record.[facility]
--- OUTSIDE RECORDS SUMMARY | 2025-02-10 16:45 | XMS_ITS | Encounter Summary ---
Author Organization [facility] Address [address] [place] [address] [place] [address] Phone Care Team Providers Care Powder Cutting Operator Name Role Phone Susan Howard MD Primary Care Provider + [phone] Encounter Details Date Type Department Care Team ([facility] st Contact Info) Description 01/27/2025 Procedure Pass [facility] Endoscopy Admitting Dept Virtual Department [address] [place] [address] Social History Tobacco Use Types Packs/Day Years Used Date Smoking Tobacco: Never Smokeless Tobacco: Never Alcohol Use Standard Drinks/Week Comments Yes 7 [...] on filedocumented in this encounter Care Teams Powder Cutting Operator Relationship Specialty Start Date End Date Susan Howard MD [address] [place] [address] [email or web address] PCP - General Family Medicine 01/14/25 documented as of this encounter Additional Source Comments The information contained in this document represents components of the legal health record. It is not the complete legal health record.[facility]
--- OUTSIDE RECORDS SUMMARY | 2025-02-10 16:45 | XMS_ITS | Encounter Summary ---
Author Organization [facility] Address [address] [place] [address] Phone Care Team Providers Care Interior Design Consultant Name Role Phone Susan Howard MD Primary Care Provider + [phone] Susan Howard MD Primary Care Provider + [phone] Encounter Details Date Type Department Care Team (Late st Contact Info) Description 05/19/2023 Procedure Pass [address] [place] [address] Social History Tobacco Use Types Packs/Day Years [...] on filedocumented in this encounter Care Teams Interior Design Consultant Relationship Specialty Start Date End Date Susan Howard MD PCP - General Family Medicine 02/06/23 01/13/25 Susan Howard MD [address] [place] [address] PCP - General Family Medicine 01/14/25 documented as of this encounter Additional Source Comments The information contained in this document represents components of the legal health record. It is not the complete legal health record.[facility]
--- OUTSIDE RECORDS SUMMARY | 2025-02-10 16:45 | XMS_ITS | Encounter Summary ---
Author Organization [facility] Address [address] [place] [address] Phone Care Team Providers Care Telecom Engineer Name Role Phone Susan Howard MD Primary Care Provider [phone] Susan Howard MD Primary Care Provider + [phone] Susan Howard MD Primary Care Provider + [phone] Reason for Referral * Physical Therapy (Routine) - Closed Specialty Diagnoses / Procedures Referred By Forest miramontes Referred To Contact Physical Therapy Diagnoses Encounter for rehabilitation Reinaldo De Paz MD Phone: tel: fax: [email or web address] [facility] [address] [place] [address] Phone: tel: Referral ID Status Reason Start Date Expiration Date Visits Re quested Visits Authorized [id number] Closed 01/25/2017 01/25/2018 1 1 Encounter Details Date Type Department Care Team (Latest Contact Info) Description 01/25/2017 Transcribe Orders [facility] [address] [place] [address] Reinaldo De Paz MD [address] [place] [phone] [email or web address] Encounter for rehabilitation (Primary Dx) Social History Tobacco Use Types Packs/Day Years Used Date Smoking Tobacco: Never Assessed Comments Unknown Sex and Gender Information Value Date Recorded Sex Assigned at Not on file Legal Sex Female 9:59 PM EDT Gender Identity Not on file Sexual Orientation Not on file documented as of this encounter Plan of Treatment Scheduled Referrals Name Type Priority Associated Diagnoses Orde r Schedule Ambulatory referral to [facility] Physical Therapy Outpatient Referral Routine Encounter for rehabilitation Ordered: 01/25/2017 documented as of this encounter Visit Diagnoses Diagnosis Encounter for rehabilitation- Primary documented in this encounter Care Teams Telecom Engineer Relationship Specialty Start Date End Date Susan Howard MD PCP - General 12/29/16 02/05/23 Susan Howard MD PCP - General Family Medicine 02/06/23 01/13/25 Susan Howard MD [address] [place] [address] PCP - General Family Medicine 01/14/25 documented as of this encounter Additional Source Comments The information contained in this document represents components of the legal health record. It is not the complete legal health record.[facility]
--- OUTSIDE RECORDS SUMMARY | 2025-02-10 16:45 | XMS_ITS | Encounter Summary ---
Author Organization [facility] Address [address] [place] [address] Phone Care Team Providers Care Economist Research Assistant Name Role Phone Susan Howard MD Primary Care Provider [phone] Susan Howard MD Primary Care Provider Susan Howard MD Primary Care Provider [phone]- [phone] Encounter Details Date Type Department Care Team (Latest Contact Info) Description 01/05/2021 Transcribe Orders Virtual Department [address] [place] [address] Susan Howard MD [address] [place] [phone] [email or web address] Breast screening (Primary Dx) Social History [...] MAMMOGRAM SCREENING WITH TOMOSYNTHESIS WITH CAD (BILATERAL) (02/12/2021 11:45 AM EST) Anatomical Region Laterality Modality Breast Left, Breast Right, Breast Bilateral Bila teral Mammography 02/12/2021 12:4 0 PM EST Impressions 02/12/2021 12:43 PM EST No mammographic evidence of malignancy. Recommend routine annual surveillance. BI-RADS CATEGORY: 2 - Benign finding. DENSITY: The breast tissue is heterogeneously dense, which could obscure a lesion on mammography. Narrative 02/12/2021 12:43 PM EST 70-year-old female with no current breast symptoms. Comparison made to previous on 01/31/2019 and as far back as 02/17/2012. Interpretation made in conjunction with computer-aided detection and tomosynthesis. The breasts are heterogeneously dense, which may obscure small masses. Stable subareolar lobulated dense tissue and benign scattered right breast microcalcifications. There are no suspicious masses, areas of architectural distortion, or suspicious clusters of microcalcifications. Procedure Note Juancarlos Weller MD - 02/12/2021 70-year-old female with no current breast symptoms. Comparison made toprevious on 01/31/2019 and as far back as 02/17/2012. Interpretation madein conjunction with computer-aided detection and tomosynthesis. The breasts are heterogeneously dense, which may obscure small masses.Stable subareolar lobulated dense tissue and benign scattered right breastmicrocalcifications. There are no suspicious masses, areas of architectural distortion, orsuspicious clusters of microcalcifications. IMPRESSION: No mammographic evidence of malignancy. Recommend routine annualsurveillance. BI-RADS CATEGORY: 2 - Benign finding. DENSITY: The breast tissue is heterogeneously dense, which could obscurea lesion on mammography. us Susan Howard MD IMG MG EXAMS Final Result documented in this encounter Visit Diagnoses Diagnosis Breast screening- Primary Breast screening, unspecified Breast screening Breast screening, unspecified documented in this encounter Care Teams Economist Research Assistant Relationship Specialty Start Date End Date Susan Howard MD PCP - General 12/29/16 02/05/23 Susan Howard MD PCP - General Family Medicine 02/06/23 01/13/25 Susan Howard MD [address] [place] [phone] [email or web address] PCP - General Family Medicine 01/14/25 documented as of this encounter Additional Source Comments The information contained in this document represents components of the legal health record. It is not the complete legal health record.[facility]
== END 2025-02-10 13:36 | disposition home or self-care (01) ==
LOC: HO.HOP 13:06
PROVIDERS: PCP Family Medicine; Visit Provider Clinical Nurse Specialist Psychiatric/Mental Health
DX: F51.5 Nightmare disorder (principal); F33.1 Major depressive disorder, recurrent, moderate; F41.1 Generalized anxiety disorder
CPT/HCPCS: 99214

== ENCOUNTER → 2025-02-10 13:06 | Outpatient (BNVA) | payer MEDICARE, OTHER, SELFPAY | PROVIDERS: PCP Family Medicine; Visit Provider Clinical Nurse Specialist Psychiatric/Mental Health | DX: F33.1 Major depressive disorder, recurrent, moderate (principal); F51.5 Nightmare disorder; F41.1 Generalized anxiety disorder | CPT/HCPCS: 99212 ==